=== PATIENT | female | born 1965 | race Caucasian/White ===

== ENCOUNTER 2021-09-25 20:48 | Emergency (ER) | payer MEDICAID, OTHER ==
[~2021-09-25] VITALS: Ht 177.8 cm; Wt 63.5 kg
[2021-09-25 22:00] VITALS: BP 188/94
[2021-09-25 22:59] LABS: Calcium 9.2 mg/dL (8.5-10.1); Potassium 3.3 mmol/L (3.5-5.1)
[2021-09-25 23:02] LABS: Albumin 3.6 g/dL (3.4-5.0); BUN/Creatinine Ratio 19.8
[2021-09-25 23:04] LABS: Bilirubin, Total 2.2 mg/dL (0.2-1.0); Total Protein 6.3 g/dL (6.4-8.2)
[2021-09-25] MEDS ORDERED: ACETAMINOPHEN 325 MG TAB PO ONE ×2 (23:15)
== END 2021-09-26 00:25 | disposition home or self-care (01) ==
LOC: EDBD 20:48 → ER 20:50
DX: S06.0X0A Concussion without loss of consciousness, initial encounter (principal); R42 Dizziness and giddiness; E11.9 Type 2 diabetes mellitus without complications; W01.0XXA Fall on same level from slipping, tripping and stumbling without subsequent striking against object, initial encounter; Y93.89 Activity, other specified; Y92.89 Other specified places as the place of occurrence of the external cause; Y99.8 Other external cause status
CPT/HCPCS: 36415; 36600; 70450; 80053; 82805; 93005

== ENCOUNTER 2021-10-02 10:35 | Inpatient (IN) | payer MEDICAID ==
[~2021-10-02] VITALS: Ht 177.8 cm; Wt 61.2 kg
[2021-10-02] MEDS ORDERED: SODIUM CHLORIDE 0.9% 1,000 ML IV ONE (11:15)
[2021-10-02 11:32] LABS: Basophils # (auto) 0.2 10 ^3/uL (0-0.2); Basophils % (auto) 3.5 % (0.0-2.0); Eosinophils # (auto) 0.1 10 ^3/uL (0-0.8); Eosinophils % (auto) 2.2 % (0.0-7.0); Hematocrit 42.3 % (36.0-46.0); Hemoglobin 14.7 g/dL (12.2-16.2); Lymphocytes # (auto) 1.8 10 ^3/uL (0.4-5.4); Lymphocytes % (auto) 35.7 % (10.0-50.0); Mean Corpuscular Hemoglobin 28.9 pg (28.0-32.0); Mean Corpuscular Hgb Conc. 34.7 g/dL (32.0-36.0); Mean Corpuscular Volume 83.3 fL (80.0-100.0); Monocytes # (auto) 0.4 10 ^3/uL (0-1.3); Monocytes % (auto) 7.9 % (0.0-12.0); Neutrophils # (auto) 2.6 10 ^3/uL (1.6-8.6); Neutrophils % (auto) 50.7 % (37.0-80.0); Nucleated Red Blood Cells % 0.4 %; Red Blood Cells 5.08 10^6/uL (4.0-5.20); Red Cell Distribution Width 14.1 % (11.8-14.3); White Blood Cell 5.1 10^3/uL (4.4-10.8)
[2021-10-02 12:08] LABS: Albumin 3.6 g/dL (3.4-5.0); Calcium 9.5 mg/dL (8.5-10.1); Potassium 3.3 mmol/L (3.5-5.1)
[2021-10-02 12:18] LABS: BUN/Creatinine Ratio 15.6; Magnesium 1.6 mg/dL (1.6-2.6); Total Protein 6.6 g/dL (6.4-8.2)
[2021-10-02] MEDS ORDERED: MORPHINE SULFATE INJECTION 2 MG/ML SYRG IV ONE (12:45)
[2021-10-02] MEDS ORDERED: ONDANSETRON HCL 4 MG/2 ML VIAL IV ONE (12:45)
[2021-10-02 13:38] LABS: Urine Bacteria FEW /hpf (None Seen); Urine Blood Negative /uL (Negative); Urine Hyaline Cast FEW /lpf (0 - 2); Urine Mucus FEW (None Seen); Urine Specific Gravity 1.032 (1.001-1.035); Urine WBC 5 /hpf (0 - 5)
[2021-10-02 14:06] LABS: INR 1.06 (0.9-1.15); Partial Thromboplastin Time 24.4 sec (23.6-33.0)
[2021-10-02] MEDS ORDERED: ONDANSETRON HCL 4 MG/2 ML VIAL IV PRN (16:45)
[2021-10-02] MEDS ORDERED: DEXTROSE (50%) 50ML SYRG IV PRN (17:30)
[2021-10-02] MEDS: SODIUM CHLORIDE 0.9% 1,000 ML IV SCH (17:38)
[2021-10-02] MEDS: MORPHINE SULFATE 4 MG/ML SYR/VIAL IV PRN ×2 (17:54→22:42)
[2021-10-02] MEDS ORDERED: POTASSIUM CHL 20 Meq TABLET PO ONE (19:45)
[2021-10-02 20:20] LABS: Cholesterol 225 mg/dL (< 200); HDL Cholesterol 41 mg/dL (40-59); LDL Cholesterol 142 mg/dL (< 100); Triglycerides 274 mg/dL (< 150)
[2021-10-02 22:00] VITALS: BP 136/87
[2021-10-02] MEDS: ACCU-CHEK COMFORT CURVE STRIP VI SCH (22:42)
[2021-10-02] MEDS: InsuLIN REG 1unit/0.01ml Soln (100units/ml) SC SCH (22:45)
[2021-10-03] MEDS ORDERED: INSLANTI SC (00:57)
[2021-10-03] MEDS ORDERED: METF-370 PO (00:57)
[2021-10-03] MEDS: MORPHINE SULFATE 4 MG/ML SYR/VIAL IV PRN ×5 (03:06→23:57)
[2021-10-03 05:00] VITALS: BP 143/82
[2021-10-03 05:24] LABS: Basophils # (auto) 0.1 10 ^3/uL (0-0.2); Basophils % (auto) 1.7 % (0.0-2.0); Eosinophils # (auto) 0.1 10 ^3/uL (0-0.8); Eosinophils % (auto) 3.7 % (0.0-7.0); Hematocrit 37.4 % (36.0-46.0); Hemoglobin 13.3 g/dL (12.2-16.2); Lymphocytes # (auto) 1.7 10 ^3/uL (0.4-5.4); Lymphocytes % (auto) 46.7 % (10.0-50.0); Mean Corpuscular Hemoglobin 29.4 pg (28.0-32.0); Mean Corpuscular Hgb Conc. 35.5 g/dL (32.0-36.0); Mean Corpuscular Volume 82.9 fL (80.0-100.0); Monocytes # (auto) 0.4 10 ^3/uL (0-1.3); Monocytes % (auto) 10.5 % (0.0-12.0); Neutrophils # (auto) 1.4 10 ^3/uL (1.6-8.6); Neutrophils % (auto) 37.4 % (37.0-80.0); Nucleated Red Blood Cells % 0.1 %; Red Blood Cells 4.51 10^6/uL (4.0-5.20); White Blood Cell 3.7 10^3/uL (4.4-10.8)
[2021-10-03 05:47] LABS: Potassium 3.6 mmol/L (3.5-5.1)
[2021-10-03 05:55] LABS: Albumin 3.2 g/dL (3.4-5.0); BUN/Creatinine Ratio 18.8; Calcium 8.8 mg/dL (8.5-10.1)
[2021-10-03 05:59] LABS: Bilirubin, Total 2.4 mg/dL (0.2-1.0)
[2021-10-03] MEDS: SODIUM CHLORIDE 0.9% 1,000 ML IV SCH ×3 (06:34→19:50)
[2021-10-03] MEDS: ACCU-CHEK COMFORT CURVE STRIP VI SCH ×4 (06:35→22:28)
[2021-10-03] MEDS: InsuLIN REG 1unit/0.01ml Soln (100units/ml) SC SCH ×4 (06:36→22:28)
[2021-10-03 08:00] VITALS: BP 116/71
[2021-10-03] MEDS: ENOXAPARIN SOD 40 MG/0.4 ML SYRINGE SC SCH (09:09)
[2021-10-03 12:00] VITALS: BP 142/82
[2021-10-03 12:59] LABS: Alcohol, Urine < 3.0 mg/dL (0-10); Amphetamine Screen, Urine NEGATIVE (NEGATIVE); Barbiturate Scree,Urine NEGATIVE (NEGATIVE); Benzodiazephine Screen, Urine NEGATIVE (NEGATIVE); Cannabinoid Screen, Urine NEGATIVE (NEGATIVE); Cocaine Screen, Urine NEGATIVE (NEGATIVE); Opiate Scree,Urine NEGATIVE (NEGATIVE); Phencyclidine Screen, Urine NEGATIVE (NEGATIVE)
[2021-10-03 16:00] VITALS: BP 143/86
[2021-10-03 22:00] VITALS: BP 141/76
[2021-10-04] MEDS: SODIUM CHLORIDE 0.9% 1,000 ML IV SCH ×3 (03:29→21:09)
[2021-10-04 05:00] VITALS: BP 164/95
[2021-10-04] MEDS: MORPHINE SULFATE 4 MG/ML SYR/VIAL IV PRN ×4 (05:13→21:08)
[2021-10-04] MEDS: ACCU-CHEK COMFORT CURVE STRIP VI SCH ×4 (06:50→21:14)
[2021-10-04] MEDS: InsuLIN REG 1unit/0.01ml Soln (100units/ml) SC SCH ×4 (06:51→21:07)
[2021-10-04] MEDS: hydrALAZINE HCL 20 MG/ML VL IV PRN (07:06)
[2021-10-04 08:00] VITALS: BP 129/68
[2021-10-04 09:00] VITALS: BP 129/68
[2021-10-04] MEDS: ENOXAPARIN SOD 40 MG/0.4 ML SYRINGE SC SCH (09:41)
[2021-10-04 13:00] VITALS: BP 153/83
[2021-10-04 17:00] VITALS: BP 144/80
[2021-10-04 22:00] VITALS: BP 142/87
[2021-10-05] MEDS: MORPHINE SULFATE 4 MG/ML SYR/VIAL IV PRN ×2 (02:26→09:22)
[2021-10-05 05:09] VITALS: BP 141/88
[2021-10-05] MEDS: SODIUM CHLORIDE 0.9% 1,000 ML IV SCH ×2 (05:43→08:49)
[2021-10-05] MEDS: InsuLIN REG 1unit/0.01ml Soln (100units/ml) SC SCH ×2 (06:50→11:46)
[2021-10-05] MEDS: ACCU-CHEK COMFORT CURVE STRIP VI SCH ×2 (06:51→11:45)
[2021-10-05] MEDS ORDERED: LORazepam 2MG/ML-1ML VIAL IV PRN (08:30)
[2021-10-05 09:01] VITALS: BP 154/86
[2021-10-05] MEDS: ENOXAPARIN SOD 40 MG/0.4 ML SYRINGE SC SCH (09:22)
[2021-10-05 11:40] VITALS: BP 154/86
[2021-10-05] MEDS: hydrALAZINE HCL 20 MG/ML VL IV PRN (12:15)
[2021-10-05 13:00] VITALS: BP 158/91
== END 2021-10-05 14:17 | disposition home or self-care (01) | DRG 204 ==
LOC: ER 10:35 → TELE 16:35 → TELE-CENTR 21:59
PROVIDERS: ADMIT Registered Nurse; ATTEND Family Medicine
DX: R55 Syncope and collapse (principal); E11.22 Type 2 diabetes mellitus with diabetic chronic kidney disease; I95.9 Hypotension, unspecified; C44.90 Unspecified malignant neoplasm of skin, unspecified; E04.1 Nontoxic single thyroid nodule; E86.0 Dehydration; E87.6 Hypokalemia; F17.200 Nicotine dependence, unspecified, uncomplicated; I12.9 Hypertensive chronic kidney disease with stage 1 through stage 4 chronic kidney disease, or unspecified chronic kidney disease; R80.9 Proteinuria, unspecified; R82.4 Acetonuria; K57.90 Diverticulosis of intestine, part unspecified, without perforation or abscess without bleeding; Z20.822 Contact with and (suspected) exposure to COVID-19; N18.2 Chronic kidney disease, stage 2 (mild); Z80.9 Family history of malignant neoplasm, unspecified; Z82.3 Family history of stroke; Z82.49 Family history of ischemic heart disease and other diseases of the circulatory system; Z82.5 Family history of asthma and other chronic lower respiratory diseases; Z83.3 Family history of diabetes mellitus; Z85.828 Personal history of other malignant neoplasm of skin; Z88.0 Allergy status to penicillin; Z88.8 Allergy status to other drugs, medicaments and biological substances; Z91.040 Latex allergy status; Z91.81 History of falling; Z79.4 Long term (current) use of insulin
CPT/HCPCS: 36415; 70551; 71045; 71260; 74177; 76536; 80053; 80061; 80307; 81001; 82962; 83036; 83605; 83735; 84443; 84484; 85025; 85610; 85730; 87040; 87086; 93005; 93306; 93886; 96361; 96374; 96375; G0378; J1815; J2405

== ENCOUNTER 2021-10-07 07:58 | Inpatient (IN) | payer MEDICAID ==
[~2021-10-07] VITALS: Ht 162.6 cm; Wt 63.7 kg
[~2021-10-07 07:58] MED LIST: INSLANTI SC; METF-370 PO
[2021-10-07 09:27] LABS: Basophils # (auto) 0 10 ^3/uL (0-0.2); Eosinophils # (auto) 0.1 10 ^3/uL (0-0.8); Eosinophils % (auto) 2.1 % (0.0-7.0); Hematocrit 36.9 % (36.0-46.0); Hemoglobin 12.9 g/dL (12.2-16.2); Lymphocytes # (auto) 1.9 10 ^3/uL (0.4-5.4); Lymphocytes % (auto) 44.6 % (10.0-50.0); Mean Corpuscular Hemoglobin 29.1 pg (28.0-32.0); Mean Corpuscular Hgb Conc. 35.1 g/dL (32.0-36.0); Monocytes # (auto) 0.3 10 ^3/uL (0-1.3); Monocytes % (auto) 8.2 % (0.0-12.0); Neutrophils # (auto) 1.8 10 ^3/uL (1.6-8.6); Neutrophils % (auto) 44.1 % (37.0-80.0); Nucleated Red Blood Cells % 0.3 %; Red Blood Cells 4.45 10^6/uL (4.0-5.20); White Blood Cell 4.2 10^3/uL (4.4-10.8)
[2021-10-07 09:28] LABS: Urine Bacteria NONE SEEN /hpf (None Seen); Urine Blood Negative /uL (Negative); Urine Specific Gravity 1.017 (1.001-1.035); Urine WBC 1 /hpf (0 - 5)
[2021-10-07 09:42] LABS: Albumin 3.6 g/dL (3.4-5.0); Calcium 9.2 mg/dL (8.5-10.1)
[2021-10-07 09:46] LABS: BUN/Creatinine Ratio 13.8; Total Protein 6.3 g/dL (6.4-8.2)
[2021-10-07] MEDS ORDERED: POTASSIUM EFFERVESENT TAB 25 MEQ PO ONE (10:15)
[2021-10-07] MEDS ORDERED: LABETALOL HCL 5 MG/ML 4ML SYRINGE IV ONE (10:15)
[2021-10-07] MEDS ORDERED: ONDANSETRON HCL 4 MG/2 ML VIAL IV ONE ×2 (11:00→14:45)
[2021-10-07] MEDS ORDERED: MORPHINE SULFATE INJ 2 MG/ml SYRG IV ONE ×2 (11:00→14:45)
[2021-10-07] MEDS ORDERED: HYDROmorphone HCL 2 MG/ML VL/or syr IV PRN (18:00)
[2021-10-07] MEDS ORDERED: NITROGLYCERIN 0.4 MG SL TAB SL PRN ×2 (18:00)
[2021-10-07] MEDS ORDERED: DEXTROSE (50%) 50ML SYRG IV PRN (18:00)
[2021-10-07] MEDS ORDERED: MORPHINE SULFATE INJ 2 MG/ml SYRG IV PRN ×2 (18:00)
[2021-10-07] MEDS ORDERED: PANTOPRAZOLE 40 MG TAB PO ONE (18:15)
[2021-10-07] MEDS: SOD CHL 0.45% 1,000 ML IV SCH (18:24)
[2021-10-07] MEDS ORDERED: hydrALAZINE HCL 20 MG/ML VL IV PRN (18:30)
[2021-10-07] MEDS ORDERED: amLODIPine BESYLATE 5 MG TAB PO ONE (18:30)
[2021-10-07 19:40] VITALS: BP 157/80
[2021-10-07] MEDS: SODIUM CHLOR 0.9% PF (SALINE LOCK) 10ML VIAL/SYR IV SCH (21:09)
[2021-10-07] MEDS: ACCU-CHEK COMFORT CURVE STRIP VI SCH (21:09)
[2021-10-07] MEDS: MORPHINE SULFATE INJ 2 MG/ml SYRG IV PRN (21:11)
[2021-10-07] MEDS: InsuLIN REG 1unit/0.01ml Soln (100units/ml) SC SCH (21:43)
[2021-10-07 22:00] VITALS: BP 157/80
[2021-10-07] MEDS ORDERED: CYCLOBENZAPRINE HCL 10 MG TAB PO ONE (22:00)
[2021-10-07] MEDS ORDERED: QUEtiapine FUMARATE 25 MG TAB PO ONE (22:00)
[2021-10-08] VITALS (7 sets, daily range): BP systolic 102–130; BP diastolic 66–82
[2021-10-08] MEDS: SODIUM CHLOR 0.9% PF (SALINE LOCK) 10ML VIAL/SYR IV SCH ×3 (05:32→21:43)
[2021-10-08] MEDS: ACCU-CHEK COMFORT CURVE STRIP VI SCH ×4 (05:33→21:43)
[2021-10-08] MEDS: MORPHINE SULFATE INJ 2 MG/ml SYRG IV PRN ×5 (05:34→23:00)
[2021-10-08] MEDS: InsuLIN REG 1unit/0.01ml Soln (100units/ml) SC SCH ×4 (05:53→21:49)
[2021-10-08 06:03] LABS: Basophils # (auto) 0.1 10 ^3/uL (0-0.2); Basophils % (auto) 1.5 % (0.0-2.0); Eosinophils # (auto) 0.1 10 ^3/uL (0-0.8); Eosinophils % (auto) 3.2 % (0.0-7.0); Hematocrit 36.9 % (36.0-46.0); Hemoglobin 13.2 g/dL (12.2-16.2); Lymphocytes # (auto) 1.8 10 ^3/uL (0.4-5.4); Lymphocytes % (auto) 49.5 % (10.0-50.0); Mean Corpuscular Hemoglobin 30.1 pg (28.0-32.0); Mean Corpuscular Hgb Conc. 35.9 g/dL (32.0-36.0); Mean Corpuscular Volume 83.8 fL (80.0-100.0); Monocytes # (auto) 0.2 10 ^3/uL (0-1.3); Monocytes % (auto) 6.7 % (0.0-12.0); Neutrophils # (auto) 1.4 10 ^3/uL (1.6-8.6); Neutrophils % (auto) 39.1 % (37.0-80.0); Nucleated Red Blood Cells % 0.3 %; Red Cell Distribution Width 14.4 % (11.8-14.3); White Blood Cell 3.7 10^3/uL (4.4-10.8)
[2021-10-08 06:18] LABS: Albumin 3.3 g/dL (3.4-5.0); Calcium 9.2 mg/dL (8.5-10.1); Potassium 3.7 mmol/L (3.5-5.1)
[2021-10-08 06:33] LABS: BUN/Creatinine Ratio 15.4; Bilirubin, Total 2.3 mg/dL (0.2-1.0); Total Protein 6.2 g/dL (6.4-8.2)
[2021-10-08] MEDS: SOD CHL 0.45% 1,000 ML IV SCH (21:42)
[2021-10-08] MEDS ORDERED: QUEtiapine FUMARATE 25 MG TAB PO ONE (22:00)
[2021-10-09] VITALS (7 sets, daily range): BP systolic 114–168; BP diastolic 73–90
[2021-10-09] MEDS: KETOROLAC TROMETH 30 MG/ML 1ML VIAL IV PRN (00:24)
[2021-10-09] MEDS: MORPHINE SULFATE INJ 2 MG/ml SYRG IV PRN ×5 (03:15→21:22)
[2021-10-09] MEDS: SOD CHL 0.45% 1,000 ML IV SCH ×2 (03:20→20:00)
[2021-10-09 05:34] LABS: Basophils # (auto) 0 10 ^3/uL (0-0.2); Basophils % (auto) 0.9 % (0.0-2.0); Eosinophils # (auto) 0.1 10 ^3/uL (0-0.8); Eosinophils % (auto) 2.3 % (0.0-7.0); Hematocrit 34.3 % (36.0-46.0); Hemoglobin 12.4 g/dL (12.2-16.2); Lymphocytes # (auto) 1.6 10 ^3/uL (0.4-5.4); Lymphocytes % (auto) 28.3 % (10.0-50.0); Mean Corpuscular Hemoglobin 30.1 pg (28.0-32.0); Mean Corpuscular Volume 83.6 fL (80.0-100.0); Monocytes # (auto) 0.4 10 ^3/uL (0-1.3); Monocytes % (auto) 6.6 % (0.0-12.0); Neutrophils # (auto) 3.5 10 ^3/uL (1.6-8.6); Neutrophils % (auto) 61.9 % (37.0-80.0); Nucleated Red Blood Cells % 0.1 %; Red Cell Distribution Width 14.1 % (11.8-14.3); White Blood Cell 5.7 10^3/uL (4.4-10.8)
[2021-10-09 06:00] LABS: Albumin 2.9 g/dL (3.4-5.0); Potassium 3.9 mmol/L (3.5-5.1)
[2021-10-09 06:02] LABS: BUN/Creatinine Ratio 24.7
[2021-10-09 06:04] LABS: Total Protein 5.7 g/dL (6.4-8.2)
[2021-10-09] MEDS: SODIUM CHLOR 0.9% PF (SALINE LOCK) 10ML VIAL/SYR IV SCH ×3 (06:15→22:12)
[2021-10-09] MEDS: ACCU-CHEK COMFORT CURVE STRIP VI SCH ×4 (06:16→22:13)
[2021-10-09] MEDS: InsuLIN REG 1unit/0.01ml Soln (100units/ml) SC SCH ×4 (06:20→22:00)
[2021-10-09] MEDS: PANTOPRAZOLE 40 MG TAB PO SCH (09:08)
[2021-10-09] MEDS ORDERED: METOPROLOL TARTRATE 25 MG TAB PO ONE (12:15)
[2021-10-09 12:44] LABS: % Iron Saturation 10.9 % (15-50)
[2021-10-09] MEDS ORDERED: LORazepam 2MG/ML-1ML VIAL IV PRN (20:45)
[2021-10-09] MEDS: MUPIROCIN 2% OINT 15gm or 22gm EACHNOSTRI SCH (22:00)
[2021-10-09] MEDS: INSULIN LANTUS (GLARGINE) 1 /0.01ml (100units/ml) SC SCH (22:00)
[2021-10-09] MEDS: ATORVASTATIN 20 MG TAB PO SCH (22:12)
[2021-10-09] MEDS: METOPROLOL TARTRATE 25 MG TAB PO SCH (22:13)
[2021-10-10] VITALS (7 sets, daily range): BP systolic 127–164; BP diastolic 71–91
[2021-10-10] MEDS: SOD CHL 0.45% 1,000 ML IV SCH (00:41)
[2021-10-10] MEDS: MORPHINE SULFATE INJ 2 MG/ml SYRG IV PRN ×5 (01:11→20:54)
[2021-10-10] MEDS: SODIUM CHLOR 0.9% PF (SALINE LOCK) 10ML VIAL/SYR IV SCH (05:12)
[2021-10-10] MEDS: ACCU-CHEK COMFORT CURVE STRIP VI SCH ×4 (06:31→22:21)
[2021-10-10] MEDS: InsuLIN REG 1unit/0.01ml Soln (100units/ml) SC SCH ×4 (06:32→22:35)
[2021-10-10 06:59] LABS: Potassium 3.8 mmol/L (3.5-5.1)
[2021-10-10 07:03] LABS: BUN/Creatinine Ratio 30.2; Calcium 8.9 mg/dL (8.5-10.1); Magnesium 1.9 mg/dL (1.6-2.6)
[2021-10-10] MEDS ORDERED: MAGNESIUM OXIDE 400 MG TAB PO ONE (08:45)
[2021-10-10] MEDS: MUPIROCIN 2% OINT 15gm or 22gm EACHNOSTRI SCH ×2 (09:35→22:20)
[2021-10-10] MEDS: METOPROLOL TARTRATE 25 MG TAB PO SCH ×2 (09:35→22:20)
[2021-10-10] MEDS: PANTOPRAZOLE 40 MG TAB PO SCH (09:36)
[2021-10-10] MEDS: KETOROLAC TROMETH 30 MG/ML 1ML VIAL IV PRN (09:36)
[2021-10-10] MEDS ORDERED: POTASSIUM EFFERVESENT TAB 25 MEQ PO ONE (13:30)
[2021-10-10] MEDS ORDERED: MAGNESIUM SULFATE 1GM/100ML 100 ML IV ONE (13:30)
[2021-10-10] MEDS: ERGOCALCIFEROL 50,000 UNIT(1.25MG) CAP PO SCH (17:11)
[2021-10-10] MEDS: ATORVASTATIN 20 MG TAB PO SCH (22:20)
[2021-10-10] MEDS: INSULIN LANTUS (GLARGINE) 1 /0.01ml (100units/ml) SC SCH (22:29)
[2021-10-10] MEDS: HYDROcodone-ACET 5/325MG TAB PO PRN (22:35)
[2021-10-11] VITALS (7 sets, daily range): BP systolic 102–154; BP diastolic 60–83
[2021-10-11] MEDS: MORPHINE SULFATE INJ 2 MG/ml SYRG IV PRN ×6 (01:03→22:42)
[2021-10-11] MEDS: ACCU-CHEK COMFORT CURVE STRIP VI SCH ×4 (06:32→21:57)
[2021-10-11] MEDS: InsuLIN REG 1unit/0.01ml Soln (100units/ml) SC SCH ×4 (06:38→21:57)
[2021-10-11 08:49] LABS: Magnesium 1.8 mg/dL (1.6-2.6); Potassium 4.2 mmol/L (3.5-5.1)
[2021-10-11] MEDS: MUPIROCIN 2% OINT 15gm or 22gm EACHNOSTRI SCH ×2 (10:11→21:56)
[2021-10-11] MEDS: METOPROLOL TARTRATE 25 MG TAB PO SCH ×2 (10:12→21:56)
[2021-10-11] MEDS ORDERED: SODIUM CHLORIDE 0.9% 1,000 ML IV SCH (12:30)
[2021-10-11] MEDS ORDERED: FLUDROCORTISONE ACETATE 0.1 MG TAB PO ONE (14:15)
[2021-10-11] MEDS ORDERED: MAGNESIUM SULFATE 1GM/100ML 100 ML IV ONE (14:15)
[2021-10-11] MEDS: SODIUM CHLORIDE 0.9% 1,000 ML IV SCH (14:23)
[2021-10-11] MEDS: ATORVASTATIN 20 MG TAB PO SCH (21:56)
[2021-10-11] MEDS: INSULIN LANTUS (GLARGINE) 1 /0.01ml (100units/ml) SC SCH (22:00)
[2021-10-12] VITALS (7 sets, daily range): BP systolic 126–159; BP diastolic 79–85
[2021-10-12] MEDS: MORPHINE SULFATE INJ 2 MG/ml SYRG IV PRN ×2 (02:55→09:44)
[2021-10-12] MEDS: ACCU-CHEK COMFORT CURVE STRIP VI SCH ×4 (06:34→22:14)
[2021-10-12] MEDS: InsuLIN REG 1unit/0.01ml Soln (100units/ml) SC SCH ×4 (06:39→22:25)
[2021-10-12] MEDS: FLUDROCORTISONE ACETATE 0.1 MG TAB PO SCH (09:42)
[2021-10-12] MEDS: METOPROLOL TARTRATE 25 MG TAB PO SCH (09:44)
[2021-10-12] MEDS: MUPIROCIN 2% OINT 15gm or 22gm EACHNOSTRI SCH ×2 (09:45→22:13)
[2021-10-12] MEDS: SODIUM CHLORIDE 0.9% 1,000 ML IV SCH (09:46)
[2021-10-12] MEDS: HYDROcodone-ACET 5/325MG TAB PO PRN ×3 (14:00→22:16)
[2021-10-12] MEDS: ATORVASTATIN 20 MG TAB PO SCH (22:14)
[2021-10-12] MEDS: traZODone HCL 50 MG TAB PO SCH (22:14)
[2021-10-12] MEDS: INSULIN LANTUS (GLARGINE) 1 /0.01ml (100units/ml) SC SCH (22:24)
[2021-10-13] MEDS: HYDROcodone-ACET 5/325MG TAB PO PRN ×4 (04:18→22:47)
[2021-10-13 05:00] VITALS: BP 145/78
[2021-10-13] MEDS: ACCU-CHEK COMFORT CURVE STRIP VI SCH ×4 (06:18→22:57)
[2021-10-13] MEDS: InsuLIN REG 1unit/0.01ml Soln (100units/ml) SC SCH ×4 (06:29→22:58)
[2021-10-13 09:00] VITALS: BP_SYST 131; BP_SYST 75; BP_SYST 86; BP_DIAS 51; BP_DIAS 53; BP_DIAS 79
[2021-10-13] MEDS: MUPIROCIN 2% OINT 15gm or 22gm EACHNOSTRI SCH ×2 (09:32→22:48)
[2021-10-13] MEDS: FLUDROCORTISONE ACETATE 0.1 MG TAB PO SCH (09:32)
[2021-10-13 12:00] VITALS: BP 124/71
[2021-10-13] MEDS: MIDODRINE HCL 10 MG TAB PO SCH ×2 (13:05→18:10)
[2021-10-13 16:00] VITALS: BP 151/94
[2021-10-13 22:25] VITALS: BP 165/76
[2021-10-13] MEDS: ATORVASTATIN 20 MG TAB PO SCH (22:47)
[2021-10-13] MEDS: traZODone HCL 50 MG TAB PO SCH (22:48)
[2021-10-13] MEDS: INSULIN LANTUS (GLARGINE) 1 /0.01ml (100units/ml) SC SCH (22:58)
[2021-10-14] MEDS: HYDROcodone-ACET 5/325MG TAB PO PRN ×4 (03:46→20:28)
[2021-10-14 05:09] VITALS: BP_SYST 125; BP_SYST 76; BP_SYST 93; BP_DIAS 50; BP_DIAS 60; BP_DIAS 73
[2021-10-14] MEDS: MIDODRINE HCL 10 MG TAB PO SCH ×3 (07:10→17:35)
[2021-10-14] MEDS: ACCU-CHEK COMFORT CURVE STRIP VI SCH ×4 (07:11→21:07)
[2021-10-14] MEDS: InsuLIN REG 1unit/0.01ml Soln (100units/ml) SC SCH ×4 (07:11→21:25)
[2021-10-14 07:50] VITALS: BP 146/79
[2021-10-14 09:00] VITALS: BP 146/79
[2021-10-14] MEDS: MUPIROCIN 2% OINT 15gm or 22gm EACHNOSTRI SCH (09:56)
[2021-10-14 13:00] VITALS: BP 112/76
[2021-10-14 17:00] VITALS: BP 147/80
[2021-10-14] MEDS: ATORVASTATIN 20 MG TAB PO SCH (21:07)
[2021-10-14] MEDS: traZODone HCL 50 MG TAB PO SCH (21:07)
[2021-10-14] MEDS: INSULIN LANTUS (GLARGINE) 1 /0.01ml (100units/ml) SC SCH (21:25)
[2021-10-14 22:00] VITALS: BP 148/84
[2021-10-14] MEDS: ONDANSETRON HCL 4 MG/2 ML VIAL IV PRN (23:15)
[2021-10-14] MEDS: KETOROLAC TROMETH 30 MG/ML 1ML VIAL IV PRN (23:16)
[2021-10-15] MEDS: KETOROLAC TROMETH 30 MG/ML 1ML VIAL IV PRN ×4 (03:35→17:06)
[2021-10-15] MEDS: ONDANSETRON HCL 4 MG/2 ML VIAL IV PRN ×3 (03:35→12:02)
[2021-10-15 05:00] VITALS: BP 126/71
[2021-10-15] MEDS: MIDODRINE HCL 10 MG TAB PO SCH ×3 (05:59→17:06)
[2021-10-15] MEDS: LEVOTHYROXINE SODIUM 25 MCG TAB PO SCH (05:59)
[2021-10-15] MEDS: ACCU-CHEK COMFORT CURVE STRIP VI SCH ×4 (05:59→22:08)
[2021-10-15] MEDS: InsuLIN REG 1unit/0.01ml Soln (100units/ml) SC SCH ×4 (06:09→22:07)
[2021-10-15] MEDS: DOCUSATE SOD 100 MG CAP PO PRN (08:15)
[2021-10-15 09:00] VITALS: BP 119/72
[2021-10-15 18:08] VITALS: BP 148/83
[2021-10-15 22:00] VITALS: BP_SYST 166; BP_SYST 7; BP_DIAS 89
[2021-10-15] MEDS: INSULIN LANTUS (GLARGINE) 1 /0.01ml (100units/ml) SC SCH (22:08)
[2021-10-15] MEDS: traZODone HCL 50 MG TAB PO SCH (22:11)
[2021-10-15] MEDS: ATORVASTATIN 20 MG TAB PO SCH (22:11)
[2021-10-16] VITALS (7 sets, daily range): BP systolic 76–160; BP diastolic 47–94
[2021-10-16] MEDS: HYDROcodone-ACET 5/325MG TAB PO PRN ×5 (03:05→23:04)
[2021-10-16] MEDS: MIDODRINE HCL 10 MG TAB PO SCH ×3 (06:00→17:38)
[2021-10-16] MEDS: LEVOTHYROXINE SODIUM 25 MCG TAB PO SCH (06:39)
[2021-10-16] MEDS: InsuLIN REG 1unit/0.01ml Soln (100units/ml) SC SCH ×4 (06:43→22:54)
[2021-10-16] MEDS: ACCU-CHEK COMFORT CURVE STRIP VI SCH ×4 (06:44→22:00)
[2021-10-16] MEDS ORDERED: methylPREDNISolone SOD SUCC 125 MG/2 ML VL IV ONE (11:15)
[2021-10-16] MEDS ORDERED: FLUDROCORTISONE ACETATE 0.1 MG TAB PO ONE (12:30)
[2021-10-16] MEDS: DOCUSATE SOD 100 MG CAP PO PRN (13:14)
[2021-10-16] MEDS: INSULIN LANTUS (GLARGINE) 1 /0.01ml (100units/ml) SC SCH (22:55)
[2021-10-16] MEDS: ATORVASTATIN 20 MG TAB PO SCH (23:03)
[2021-10-16] MEDS: traZODone HCL 50 MG TAB PO SCH (23:04)
[2021-10-17] VITALS (7 sets, daily range): BP systolic 80–156; BP diastolic 43–92
[2021-10-17] MEDS: HYDROcodone-ACET 5/325MG TAB PO PRN ×4 (03:26→20:13)
[2021-10-17 06:15] LABS: Albumin 2.8 g/dL (3.4-5.0); Calcium 9.5 mg/dL (8.5-10.1); Potassium 3.9 mmol/L (3.5-5.1)
[2021-10-17] MEDS: MIDODRINE HCL 10 MG TAB PO SCH ×3 (06:15→17:49)
[2021-10-17] MEDS: ACCU-CHEK COMFORT CURVE STRIP VI SCH ×4 (06:16→21:53)
[2021-10-17 06:19] LABS: Bilirubin, Total 0.9 mg/dL (0.2-1.0); Total Protein 6.7 g/dL (6.4-8.2)
[2021-10-17] MEDS: InsuLIN REG 1unit/0.01ml Soln (100units/ml) SC SCH ×4 (06:26→21:55)
[2021-10-17] MEDS: LEVOTHYROXINE SODIUM 25 MCG TAB PO SCH (06:27)
[2021-10-17] MEDS: FLUDROCORTISONE ACETATE 0.1 MG TAB PO SCH (09:33)
[2021-10-17] MEDS ORDERED: predniSONE 20 MG TAB PO SCH (10:00)
[2021-10-17] MEDS: DOCUSATE SOD 100 MG CAP PO PRN (10:27)
[2021-10-17] MEDS: ERGOCALCIFEROL 50,000 UNIT(1.25MG) CAP PO SCH (13:08)
[2021-10-17] MEDS ORDERED: GABAPENTIN 300 MG CAP PO ONE (14:00)
[2021-10-17] MEDS: ATORVASTATIN 20 MG TAB PO SCH (21:52)
[2021-10-17] MEDS: traZODone HCL 50 MG TAB PO SCH (21:52)
[2021-10-17] MEDS: GABAPENTIN 300 MG CAP PO SCH (21:53)
[2021-10-17] MEDS: INSULIN LANTUS (GLARGINE) 1 /0.01ml (100units/ml) SC SCH (21:54)
[2021-10-18] VITALS (7 sets, daily range): BP systolic 70–133; BP diastolic 43–76
[2021-10-18] MEDS: HYDROcodone-ACET 5/325MG TAB PO PRN ×5 (01:38→22:03)
[2021-10-18] MEDS: ACCU-CHEK COMFORT CURVE STRIP VI SCH ×4 (06:17→22:17)
[2021-10-18] MEDS: InsuLIN REG 1unit/0.01ml Soln (100units/ml) SC SCH ×4 (06:17→22:15)
[2021-10-18] MEDS: LEVOTHYROXINE SODIUM 25 MCG TAB PO SCH (06:17)
[2021-10-18] MEDS: MIDODRINE HCL 10 MG TAB PO SCH ×3 (06:17→17:15)
[2021-10-18] MEDS: FLUDROCORTISONE ACETATE 0.1 MG TAB PO SCH (10:04)
[2021-10-18] MEDS: GABAPENTIN 300 MG CAP PO SCH ×2 (10:05→21:50)
[2021-10-18] MEDS ORDERED: ENALAPRILAT 1.25 MG/ML-1ML VIAL IV PRN (10:45)
[2021-10-18] MEDS: ATORVASTATIN 20 MG TAB PO SCH (21:50)
[2021-10-18] MEDS: traZODone HCL 50 MG TAB PO SCH (21:50)
[2021-10-18] MEDS: INSULIN LANTUS (GLARGINE) 1 /0.01ml (100units/ml) SC SCH (22:15)
[2021-10-19] MEDS: HYDROcodone-ACET 5/325MG TAB PO PRN ×3 (04:31→17:16)
[2021-10-19] MEDS: MIDODRINE HCL 10 MG TAB PO SCH ×3 (06:20→17:15)
[2021-10-19] MEDS: LEVOTHYROXINE SODIUM 25 MCG TAB PO SCH (06:20)
[2021-10-19] MEDS: ACCU-CHEK COMFORT CURVE STRIP VI SCH ×4 (06:34→21:41)
[2021-10-19] MEDS: InsuLIN REG 1unit/0.01ml Soln (100units/ml) SC SCH ×4 (06:35→21:48)
[2021-10-19] MEDS: GABAPENTIN 300 MG CAP PO SCH ×2 (08:56→21:40)
[2021-10-19] MEDS: FLUDROCORTISONE ACETATE 0.1 MG TAB PO SCH (08:56)
[2021-10-19 09:00] VITALS: BP 134/79
[2021-10-19 13:00] VITALS: BP 121/74
[2021-10-19] MEDS ORDERED: DOCUSATE SOD 100 MG CAP PO ONE (13:00)
[2021-10-19] MEDS: OCTREOTIDE ACETATE 100 MCG/ML VL SUBCUT SCH ×2 (14:09→21:50)
[2021-10-19 17:00] VITALS: BP 134/77
[2021-10-19] MEDS: DOCUSATE SOD 100 MG CAP PO PRN (17:15)
[2021-10-19] MEDS ORDERED: MORPHINE SULFATE INJ 2 MG/ml SYRG IV ONE (21:15)
[2021-10-19] MEDS: ATORVASTATIN 20 MG TAB PO SCH (21:40)
[2021-10-19] MEDS: traZODone HCL 50 MG TAB PO SCH (21:40)
[2021-10-19] MEDS: INSULIN LANTUS (GLARGINE) 1 /0.01ml (100units/ml) SC SCH (21:48)
[2021-10-19 22:00] VITALS: BP 151/84
[2021-10-20] MEDS: HYDROcodone-ACET 5/325MG TAB PO PRN ×5 (02:32→21:40)
[2021-10-20 05:00] VITALS: BP_SYST 121; BP_SYST 64; BP_DIAS 40; BP_DIAS 78
[2021-10-20] MEDS: ACCU-CHEK COMFORT CURVE STRIP VI SCH ×4 (06:19→22:00)
[2021-10-20] MEDS: InsuLIN REG 1unit/0.01ml Soln (100units/ml) SC SCH ×4 (06:20→21:58)
[2021-10-20] MEDS: OCTREOTIDE ACETATE 100 MCG/ML VL SUBCUT SCH ×3 (06:44→21:42)
[2021-10-20] MEDS: LEVOTHYROXINE SODIUM 25 MCG TAB PO SCH (06:45)
[2021-10-20] MEDS: MIDODRINE HCL 10 MG TAB PO SCH ×3 (06:45→17:38)
[2021-10-20 09:00] VITALS: BP 147/92
[2021-10-20] MEDS ORDERED: predniSONE 5 MG TAB PO SCH (10:00)
[2021-10-20] MEDS: GABAPENTIN 300 MG CAP PO SCH ×2 (10:01→21:44)
[2021-10-20] MEDS: FLUDROCORTISONE ACETATE 0.1 MG TAB PO SCH (10:01)
[2021-10-20] MEDS: DOCUSATE SOD 100 MG CAP PO PRN (10:02)
[2021-10-20] MEDS ORDERED: OMNIPAQUE ORAL SOLN 500ml 12mg/ml PO ONE (10:52)
[2021-10-20 12:30] VITALS: BP 132/88
[2021-10-20] MEDS ORDERED: IOHEXOL 300 MG/ML 100ML BOTTLE IJ ONE (13:41)
[2021-10-20 17:00] VITALS: BP 151/94
[2021-10-20] MEDS: HYOSCYAMINE SULF 0.125 MG ODT TAB PO PRN (20:24)
[2021-10-20] MEDS: traZODone HCL 50 MG TAB PO SCH (21:43)
[2021-10-20] MEDS: ATORVASTATIN 20 MG TAB PO SCH (21:43)
[2021-10-20] MEDS: INSULIN LANTUS (GLARGINE) 1 /0.01ml (100units/ml) SC SCH (21:59)
[2021-10-20 22:00] VITALS: BP_SYST 107; BP_SYST 143; BP_DIAS 66; BP_DIAS 84
[2021-10-21] VITALS (7 sets, daily range): BP systolic 69–147; BP diastolic 36–83
[2021-10-21] MEDS: HYDROcodone-ACET 5/325MG TAB PO PRN ×3 (02:24→16:05)
[2021-10-21] MEDS: LEVOTHYROXINE SODIUM 25 MCG TAB PO SCH (06:33)
[2021-10-21] MEDS: MIDODRINE HCL 10 MG TAB PO SCH ×3 (06:34→18:19)
[2021-10-21] MEDS: ACCU-CHEK COMFORT CURVE STRIP VI SCH ×4 (06:35→22:00)
[2021-10-21] MEDS: OCTREOTIDE ACETATE 100 MCG/ML VL SUBCUT SCH ×3 (06:35→22:55)
[2021-10-21] MEDS: InsuLIN REG 1unit/0.01ml Soln (100units/ml) SC SCH ×4 (06:36→22:59)
[2021-10-21] MEDS: HYOSCYAMINE SULF 0.125 MG ODT TAB PO PRN (07:31)
[2021-10-21] MEDS: FLUDROCORTISONE ACETATE 0.1 MG TAB PO SCH (10:09)
[2021-10-21] MEDS: GABAPENTIN 300 MG CAP PO SCH ×2 (10:09→22:51)
[2021-10-21] MEDS: MORPHINE SULFATE INJ 2 MG/ml SYRG IV PRN ×3 (13:10→21:52)
[2021-10-21] MEDS: SUCRALFATE 1 GM/10 ML ORAL SUSP PO SCH ×3 (14:34→21:54)
[2021-10-21] MEDS: PANTOPRAZOLE 40 MG TAB PO SCH ×2 (14:34→22:04)
[2021-10-21 14:36] LABS: Amylase 48 U/L (25-115); Lipase 130 U/L (73-393)
[2021-10-21] MEDS: ATORVASTATIN 20 MG TAB PO SCH (21:55)
[2021-10-21] MEDS: traZODone HCL 50 MG TAB PO SCH (21:55)
[2021-10-21] MEDS: INSULIN LANTUS (GLARGINE) 1 /0.01ml (100units/ml) SC SCH (22:00)
[2021-10-22] MEDS: MORPHINE SULFATE INJ 2 MG/ml SYRG IV PRN ×5 (02:02→20:00)
[2021-10-22 05:00] VITALS: BP 120/71
[2021-10-22] MEDS: OCTREOTIDE ACETATE 100 MCG/ML VL SUBCUT SCH ×3 (06:00→22:00)
[2021-10-22] MEDS: SUCRALFATE 1 GM/10 ML ORAL SUSP PO SCH ×4 (06:27→22:16)
[2021-10-22] MEDS: MIDODRINE HCL 10 MG TAB PO SCH ×3 (06:27→18:02)
[2021-10-22] MEDS: LEVOTHYROXINE SODIUM 25 MCG TAB PO SCH (06:28)
[2021-10-22] MEDS: ACCU-CHEK COMFORT CURVE STRIP VI SCH ×4 (06:42→22:00)
[2021-10-22] MEDS: InsuLIN REG 1unit/0.01ml Soln (100units/ml) SC SCH ×4 (06:59→22:00)
[2021-10-22 09:00] VITALS: BP_SYST 111; BP_SYST 72; BP_SYST 81; BP_DIAS 40; BP_DIAS 54; BP_DIAS 72
[2021-10-22] MEDS: GABAPENTIN 300 MG CAP PO SCH ×2 (11:30→22:17)
[2021-10-22] MEDS: FLUDROCORTISONE ACETATE 0.1 MG TAB PO SCH (11:30)
[2021-10-22] MEDS: PANTOPRAZOLE 40 MG TAB PO SCH ×2 (11:30→22:17)
[2021-10-22 13:00] VITALS: BP 113/70
[2021-10-22] MEDS: HYDROcodone-ACET 5/325MG TAB PO PRN (13:45)
[2021-10-22] MEDS: [UNRECOGNIZED DRUG - OTHER] PO SCH ×2 (14:00→22:00)
[2021-10-22 14:09] LABS: INR 1.05 (0.9-1.15)
[2021-10-22 16:58] VITALS: BP 116/70
[2021-10-22 22:00] VITALS: BP 116/83
[2021-10-22] MEDS: INSULIN LANTUS (GLARGINE) 1 /0.01ml (100units/ml) SC SCH (22:00)
[2021-10-22] MEDS: traZODone HCL 50 MG TAB PO SCH (22:16)
[2021-10-22] MEDS: ATORVASTATIN 20 MG TAB PO SCH (22:17)
[2021-10-23] MEDS: MORPHINE SULFATE 4 MG/ML SYR/VIAL IV PRN ×6 (00:15→21:38)
[2021-10-23 05:06] VITALS: BP 127/67
[2021-10-23] MEDS: OCTREOTIDE ACETATE 100 MCG/ML VL SUBCUT SCH ×3 (05:45→22:30)
[2021-10-23] MEDS: MIDODRINE HCL 10 MG TAB PO SCH ×3 (05:45→17:39)
[2021-10-23] MEDS: [UNRECOGNIZED DRUG - OTHER] PO SCH ×3 (05:46→22:00)
[2021-10-23] MEDS: SUCRALFATE 1 GM/10 ML ORAL SUSP PO SCH ×2 (06:25→11:09)
[2021-10-23] MEDS: ACCU-CHEK COMFORT CURVE STRIP VI SCH ×4 (06:26→22:29)
[2021-10-23] MEDS: LEVOTHYROXINE SODIUM 25 MCG TAB PO SCH (06:26)
[2021-10-23] MEDS: InsuLIN REG 1unit/0.01ml Soln (100units/ml) SC SCH ×4 (06:26→22:40)
[2021-10-23 08:10] VITALS: BP 115/71
[2021-10-23 08:57] VITALS: BP 115/71
[2021-10-23] MEDS ORDERED: LIDOCAINE VISCOUS 2% 15ML UD ONE (09:23)
[2021-10-23] MEDS ORDERED: diphenhdrAMINE HCL 50 MG/1 ML VL ONE (09:23)
[2021-10-23 09:29] LABS: Basophils # (auto) 0.1 10 ^3/uL (0-0.2); Basophils % (auto) 1.6 % (0.0-2.0); Eosinophils # (auto) 0.4 10 ^3/uL (0-0.8); Eosinophils % (auto) 7.7 % (0.0-7.0); Hematocrit 36.6 % (36.0-46.0); Hemoglobin 13.1 g/dL (12.2-16.2); Lymphocytes # (auto) 1.8 10 ^3/uL (0.4-5.4); Lymphocytes % (auto) 33.3 % (10.0-50.0); Mean Corpuscular Hgb Conc. 35.7 g/dL (32.0-36.0); Mean Corpuscular Volume 84.1 fL (80.0-100.0); Monocytes # (auto) 0.4 10 ^3/uL (0-1.3); Monocytes % (auto) 7.2 % (0.0-12.0); Neutrophils # (auto) 2.7 10 ^3/uL (1.6-8.6); Neutrophils % (auto) 50.2 % (37.0-80.0); Nucleated Red Blood Cells % 0.2 %; Red Blood Cells 4.35 10^6/uL (4.0-5.20); Red Cell Distribution Width 13.9 % (11.8-14.3); White Blood Cell 5.4 10^3/uL (4.4-10.8)
[2021-10-23 09:43] LABS: INR 1.06 (0.9-1.15); Partial Thromboplastin Time 24.8 sec (23.6-33.0)
[2021-10-23] MEDS: GABAPENTIN 300 MG CAP PO SCH ×2 (10:00→22:29)
[2021-10-23] MEDS: PANTOPRAZOLE 40 MG TAB PO SCH ×2 (10:00→22:29)
[2021-10-23] MEDS: FLUDROCORTISONE ACETATE 0.1 MG TAB PO SCH (10:00)
[2021-10-23] MEDS ORDERED: predniSONE 5 MG TAB PO SCH (10:00)
[2021-10-23 10:02] LABS: BUN/Creatinine Ratio 20.7; Calcium 9.4 mg/dL (8.5-10.1); Potassium 3.9 mmol/L (3.5-5.1)
[2021-10-23 13:00] VITALS: BP_SYST 107; BP_SYST 76; BP_SYST 81; BP_DIAS 47; BP_DIAS 52; BP_DIAS 62
[2021-10-23] MEDS: fentaNYL CITRATE 100 MCG/2 ML VL ONE ×2 (13:44→13:47)
[2021-10-23] MEDS: MIDAZOLAM HCL 5 MG/ML-1ML VIAL ONE ×2 (13:44→13:47)
[2021-10-23 17:00] VITALS: BP 133/74
[2021-10-23] MEDS: METOCLOPRAMIDE HCL 5MG/ml INJ 2ml VIAL IV SCH ×2 (17:06→22:29)
[2021-10-23 22:00] VITALS: BP_SYST 128; BP_SYST 80; BP_SYST 84; BP_DIAS 48; BP_DIAS 49; BP_DIAS 71
[2021-10-23] MEDS: ATORVASTATIN 20 MG TAB PO SCH (22:29)
[2021-10-23] MEDS: traZODone HCL 50 MG TAB PO SCH (22:29)
[2021-10-24] MEDS: MORPHINE SULFATE 4 MG/ML SYR/VIAL IV PRN ×5 (03:51→21:21)
[2021-10-24 05:00] VITALS: BP_SYST 118; BP_SYST 75; BP_SYST 81; BP_DIAS 41; BP_DIAS 43; BP_DIAS 68
[2021-10-24] MEDS: [UNRECOGNIZED DRUG - OTHER] PO SCH ×3 (06:00→22:00)
[2021-10-24] MEDS: METOCLOPRAMIDE HCL 5MG/ml INJ 2ml VIAL IV SCH ×3 (06:24→22:20)
[2021-10-24] MEDS: MIDODRINE HCL 10 MG TAB PO SCH ×3 (06:25→16:45)
[2021-10-24] MEDS: OCTREOTIDE ACETATE 100 MCG/ML VL SUBCUT SCH ×3 (06:26→22:22)
[2021-10-24] MEDS: LEVOTHYROXINE SODIUM 25 MCG TAB PO SCH (06:26)
[2021-10-24] MEDS: InsuLIN REG 1unit/0.01ml Soln (100units/ml) SC SCH ×4 (06:27→22:36)
[2021-10-24] MEDS: ACCU-CHEK COMFORT CURVE STRIP VI SCH ×4 (06:27→22:21)
[2021-10-24 08:10] VITALS: BP 105/66
[2021-10-24 08:41] VITALS: BP 105/66
[2021-10-24] MEDS: PANTOPRAZOLE 40 MG TAB PO SCH ×2 (09:49→22:20)
[2021-10-24] MEDS: FLUDROCORTISONE ACETATE 0.1 MG TAB PO SCH (09:49)
[2021-10-24] MEDS: GABAPENTIN 300 MG CAP PO SCH ×2 (09:49→22:20)
[2021-10-24 12:46] VITALS: BP 119/72
[2021-10-24] MEDS: ERGOCALCIFEROL 50,000 UNIT(1.25MG) CAP PO SCH (13:33)
[2021-10-24 16:43] VITALS: BP 133/85
[2021-10-24 21:07] VITALS: BP_SYST 0; BP_SYST 124; BP_DIAS 69
[2021-10-24] MEDS: traZODone HCL 50 MG TAB PO SCH (22:20)
[2021-10-24] MEDS: ATORVASTATIN 20 MG TAB PO SCH (22:20)
[2021-10-25] MEDS: MORPHINE SULFATE 4 MG/ML SYR/VIAL IV PRN ×6 (02:37→22:35)
[2021-10-25 05:00] VITALS: BP_SYST 107; BP_SYST 81; BP_DIAS 44; BP_DIAS 65
[2021-10-25] MEDS: METOCLOPRAMIDE HCL 5MG/ml INJ 2ml VIAL IV SCH ×3 (05:30→21:44)
[2021-10-25] MEDS: [UNRECOGNIZED DRUG - OTHER] PO SCH ×3 (05:30→21:54)
[2021-10-25] MEDS: MIDODRINE HCL 10 MG TAB PO SCH ×3 (05:30→17:45)
[2021-10-25] MEDS: LEVOTHYROXINE SODIUM 25 MCG TAB PO SCH (05:40)
[2021-10-25] MEDS: OCTREOTIDE ACETATE 100 MCG/ML VL SUBCUT SCH ×2 (05:40→14:38)
[2021-10-25] MEDS: ACCU-CHEK COMFORT CURVE STRIP VI SCH ×4 (06:38→21:45)
[2021-10-25] MEDS: InsuLIN REG 1unit/0.01ml Soln (100units/ml) SC SCH ×4 (06:40→22:29)
[2021-10-25 09:00] VITALS: BP 137/84
[2021-10-25] MEDS: FLUDROCORTISONE ACETATE 0.1 MG TAB PO SCH ×2 (10:18→21:45)
[2021-10-25] MEDS: GABAPENTIN 300 MG CAP PO SCH ×2 (10:18→21:45)
[2021-10-25] MEDS: PANTOPRAZOLE 40 MG TAB PO SCH ×2 (10:19→21:45)
[2021-10-25 13:00] VITALS: BP 111/65
[2021-10-25 17:00] VITALS: BP_SYST 121; BP_SYST 134; BP_SYST 83; BP_DIAS 42; BP_DIAS 76; BP_DIAS 80
[2021-10-25] MEDS: traZODone HCL 50 MG TAB PO SCH (21:44)
[2021-10-25] MEDS: ATORVASTATIN 20 MG TAB PO SCH (21:45)
[2021-10-25 22:00] VITALS: BP 110/67
[2021-10-26] VITALS (9 sets, daily range): BP systolic 60–141; BP diastolic 32–83
[2021-10-26] MEDS: MORPHINE SULFATE 4 MG/ML SYR/VIAL IV PRN ×2 (03:09→09:01)
[2021-10-26 05:31] LABS: BUN/Creatinine Ratio 17.9; Calcium 8.9 mg/dL (8.5-10.1); Potassium 3.7 mmol/L (3.5-5.1)
[2021-10-26] MEDS: [UNRECOGNIZED DRUG - OTHER] PO SCH ×3 (05:35→22:00)
[2021-10-26] MEDS: ACCU-CHEK COMFORT CURVE STRIP VI SCH ×4 (06:01→23:07)
[2021-10-26] MEDS: MIDODRINE HCL 10 MG TAB PO SCH ×3 (06:01→18:00)
[2021-10-26] MEDS: METOCLOPRAMIDE HCL 5MG/ml INJ 2ml VIAL IV SCH ×3 (06:01→23:05)
[2021-10-26] MEDS: LEVOTHYROXINE SODIUM 25 MCG TAB PO SCH (06:01)
[2021-10-26] MEDS: InsuLIN REG 1unit/0.01ml Soln (100units/ml) SC SCH ×4 (06:08→23:16)
[2021-10-26] MEDS: PANTOPRAZOLE 40 MG TAB PO SCH ×2 (09:02→23:06)
[2021-10-26] MEDS: GABAPENTIN 300 MG CAP PO SCH ×2 (09:02→23:06)
[2021-10-26] MEDS: FLUDROCORTISONE ACETATE 0.1 MG TAB PO SCH ×2 (09:02→23:06)
[2021-10-26] MEDS: traMADol HCL 50 MG TAB PO PRN ×2 (13:16→20:00)
[2021-10-26] MEDS: traZODone HCL 50 MG TAB PO SCH (23:05)
[2021-10-26] MEDS: ATORVASTATIN 20 MG TAB PO SCH (23:06)
[2021-10-27] MEDS: traMADol HCL 50 MG TAB PO PRN ×4 (03:08→20:04)
[2021-10-27] MEDS: [UNRECOGNIZED DRUG - OTHER] PO SCH ×3 (05:03→22:00)
[2021-10-27 05:07] VITALS: BP 127/72
[2021-10-27] MEDS: LEVOTHYROXINE SODIUM 25 MCG TAB PO SCH (05:27)
[2021-10-27] MEDS: MIDODRINE HCL 10 MG TAB PO SCH ×3 (05:27→18:27)
[2021-10-27] MEDS: METOCLOPRAMIDE HCL 5MG/ml INJ 2ml VIAL IV SCH ×3 (05:27→23:32)
[2021-10-27] MEDS: ACCU-CHEK COMFORT CURVE STRIP VI SCH ×4 (05:28→23:34)
[2021-10-27] MEDS: InsuLIN REG 1unit/0.01ml Soln (100units/ml) SC SCH ×4 (05:30→23:37)
[2021-10-27 08:00] VITALS: BP_SYST 115; BP_SYST 116; BP_SYST 65; BP_DIAS 35; BP_DIAS 57; BP_DIAS 65
[2021-10-27] MEDS: GABAPENTIN 300 MG CAP PO SCH ×2 (09:42→23:33)
[2021-10-27] MEDS: FLUDROCORTISONE ACETATE 0.1 MG TAB PO SCH (09:42)
[2021-10-27] MEDS: PANTOPRAZOLE 40 MG TAB PO SCH ×2 (09:42→23:33)
[2021-10-27 12:00] VITALS: BP_SYST 109; BP_SYST 141; BP_SYST 89; BP_DIAS 51; BP_DIAS 70; BP_DIAS 77
[2021-10-27] MEDS: OCTREOTIDE ACETATE 100 MCG/ML VL SUBCUT SCH ×2 (15:03→23:34)
[2021-10-27 16:00] VITALS: BP_SYST 108; BP_SYST 141; BP_SYST 75; BP_DIAS 35; BP_DIAS 69; BP_DIAS 81
[2021-10-27 22:00] VITALS: BP_SYST 149; BP_SYST 173; BP_SYST 99; BP_DIAS 61; BP_DIAS 88; BP_DIAS 90
[2021-10-27] MEDS: traZODone HCL 50 MG TAB PO SCH (23:32)
[2021-10-27] MEDS: ATORVASTATIN 20 MG TAB PO SCH (23:33)
[2021-10-28] MEDS: traMADol HCL 50 MG TAB PO PRN ×3 (04:16→16:12)
[2021-10-28 05:00] VITALS: BP_SYST 125; BP_SYST 86; BP_SYST 93; BP_DIAS 53; BP_DIAS 72
[2021-10-28] MEDS: [UNRECOGNIZED DRUG - OTHER] PO SCH ×3 (05:30→22:00)
[2021-10-28] MEDS: InsuLIN REG 1unit/0.01ml Soln (100units/ml) SC SCH ×4 (05:31→23:20)
[2021-10-28] MEDS: METOCLOPRAMIDE HCL 5MG/ml INJ 2ml VIAL IV SCH ×3 (06:13→23:17)
[2021-10-28] MEDS: MIDODRINE HCL 10 MG TAB PO SCH ×3 (06:13→17:07)
[2021-10-28] MEDS: OCTREOTIDE ACETATE 100 MCG/ML VL SUBCUT SCH ×3 (06:16→23:19)
[2021-10-28] MEDS: LEVOTHYROXINE SODIUM 25 MCG TAB PO SCH (06:16)
[2021-10-28] MEDS: ACCU-CHEK COMFORT CURVE STRIP VI SCH ×4 (06:17→23:19)
[2021-10-28 09:00] VITALS: BP_SYST 112; BP_SYST 76; BP_DIAS 45; BP_DIAS 70
[2021-10-28] MEDS: FLUDROCORTISONE ACETATE 0.1 MG TAB PO SCH (09:52)
[2021-10-28] MEDS: PANTOPRAZOLE 40 MG TAB PO SCH ×2 (09:52→23:19)
[2021-10-28] MEDS: GABAPENTIN 300 MG CAP PO SCH ×2 (09:53→23:18)
[2021-10-28 13:00] VITALS: BP_SYST 151; BP_SYST 77; BP_DIAS 45; BP_DIAS 83
[2021-10-28 17:00] VITALS: BP_SYST 131; BP_SYST 70; BP_SYST 91; BP_DIAS 42; BP_DIAS 62; BP_DIAS 74
[2021-10-28 22:00] VITALS: BP_SYST 113; BP_SYST 48; BP_SYST 83; BP_DIAS 26; BP_DIAS 51; BP_DIAS 68
[2021-10-28] MEDS: traZODone HCL 50 MG TAB PO SCH (23:18)
[2021-10-28] MEDS: ATORVASTATIN 20 MG TAB PO SCH (23:18)
[2021-10-29] VITALS (8 sets, daily range): BP systolic 61–134; BP diastolic 35–80
[2021-10-29] MEDS: traMADol HCL 50 MG TAB PO PRN ×3 (03:48→21:50)
[2021-10-29] MEDS: [UNRECOGNIZED DRUG - OTHER] PO SCH ×3 (05:08→22:00)
[2021-10-29] MEDS: METOCLOPRAMIDE HCL 5MG/ml INJ 2ml VIAL IV SCH ×3 (05:59→21:51)
[2021-10-29] MEDS: MIDODRINE HCL 10 MG TAB PO SCH ×3 (05:59→16:53)
[2021-10-29] MEDS: OCTREOTIDE ACETATE 100 MCG/ML VL SUBCUT SCH ×3 (06:00→21:58)
[2021-10-29] MEDS: ACCU-CHEK COMFORT CURVE STRIP VI SCH ×4 (06:00→21:59)
[2021-10-29] MEDS: LEVOTHYROXINE SODIUM 25 MCG TAB PO SCH (06:00)
[2021-10-29] MEDS: InsuLIN REG 1unit/0.01ml Soln (100units/ml) SC SCH ×4 (06:01→22:01)
[2021-10-29] MEDS: GABAPENTIN 300 MG CAP PO SCH ×2 (09:16→21:52)
[2021-10-29] MEDS: PANTOPRAZOLE 40 MG TAB PO SCH ×2 (09:16→21:53)
[2021-10-29] MEDS: FLUDROCORTISONE ACETATE 0.1 MG TAB PO SCH (09:16)
[2021-10-29] MEDS: traZODone HCL 50 MG TAB PO SCH (21:51)
[2021-10-29] MEDS: ATORVASTATIN 20 MG TAB PO SCH (21:52)
[2021-10-30] MEDS: traMADol HCL 50 MG TAB PO PRN ×5 (02:05→22:04)
[2021-10-30 05:00] VITALS: BP_SYST 136; BP_SYST 43; BP_SYST 61; BP_DIAS 23; BP_DIAS 40; BP_DIAS 76
[2021-10-30] MEDS: [UNRECOGNIZED DRUG - OTHER] PO SCH ×3 (06:00→22:06)
[2021-10-30] MEDS: METOCLOPRAMIDE HCL 5MG/ml INJ 2ml VIAL IV SCH ×3 (06:43→22:06)
[2021-10-30] MEDS: MIDODRINE HCL 10 MG TAB PO SCH ×3 (06:43→17:14)
[2021-10-30] MEDS: OCTREOTIDE ACETATE 100 MCG/ML VL SUBCUT SCH (06:47)
[2021-10-30] MEDS: LEVOTHYROXINE SODIUM 25 MCG TAB PO SCH (06:47)
[2021-10-30] MEDS: ACCU-CHEK COMFORT CURVE STRIP VI SCH ×4 (06:48→22:05)
[2021-10-30] MEDS: InsuLIN REG 1unit/0.01ml Soln (100units/ml) SC SCH ×4 (06:49→22:08)
[2021-10-30 09:00] VITALS: BP_SYST 126; BP_SYST 70; BP_SYST 81; BP_DIAS 42; BP_DIAS 50; BP_DIAS 77
[2021-10-30] MEDS: GABAPENTIN 300 MG CAP PO SCH ×2 (11:01→22:05)
[2021-10-30] MEDS: FLUDROCORTISONE ACETATE 0.1 MG TAB PO SCH (11:02)
[2021-10-30] MEDS: PANTOPRAZOLE 40 MG TAB PO SCH ×2 (11:02→22:05)
[2021-10-30 12:57] VITALS: BP_SYST 128; BP_SYST 59; BP_SYST 82; BP_DIAS 37; BP_DIAS 54; BP_DIAS 78
[2021-10-30 17:00] VITALS: BP_SYST 125; BP_SYST 66; BP_SYST 86; BP_DIAS 40; BP_DIAS 53; BP_DIAS 75
[2021-10-30 21:57] VITALS: BP 136/76
[2021-10-30 22:00] VITALS: BP_SYST 105; BP_SYST 94; BP_DIAS 59
[2021-10-30] MEDS: traZODone HCL 50 MG TAB PO SCH (22:06)
[2021-10-30] MEDS: ATORVASTATIN 20 MG TAB PO SCH (22:09)
[2021-10-31] MEDS: traMADol HCL 50 MG TAB PO PRN ×5 (02:36→21:21)
[2021-10-31 04:59] VITALS: BP 115/57
[2021-10-31 05:02] VITALS: BP 76/45
[2021-10-31 05:41] LABS: Basophils # (auto) 0.1 10 ^3/uL (0-0.2); Basophils % (auto) 1.2 % (0.0-2.0); Eosinophils # (auto) 0.2 10 ^3/uL (0-0.8); Eosinophils % (auto) 3.5 % (0.0-7.0); Hematocrit 33.8 % (36.0-46.0); Lymphocytes # (auto) 1.8 10 ^3/uL (0.4-5.4); Lymphocytes % (auto) 33.3 % (10.0-50.0); Mean Corpuscular Hgb Conc. 35.4 g/dL (32.0-36.0); Mean Corpuscular Volume 84.6 fL (80.0-100.0); Monocytes # (auto) 0.4 10 ^3/uL (0-1.3); Monocytes % (auto) 7.5 % (0.0-12.0); Neutrophils % (auto) 54.5 % (37.0-80.0); Nucleated Red Blood Cells % 0.1 %; Red Blood Cells 3.99 10^6/uL (4.0-5.20); White Blood Cell 5.5 10^3/uL (4.4-10.8)
[2021-10-31 05:45] LABS: Potassium 3.4 mmol/L (3.5-5.1)
[2021-10-31 05:49] LABS: BUN/Creatinine Ratio 21.7; Calcium 8.9 mg/dL (8.5-10.1)
[2021-10-31] MEDS: ACCU-CHEK COMFORT CURVE STRIP VI SCH ×4 (06:19→22:59)
[2021-10-31] MEDS: InsuLIN REG 1unit/0.01ml Soln (100units/ml) SC SCH ×4 (06:19→21:12)
[2021-10-31] MEDS: METOCLOPRAMIDE HCL 5MG/ml INJ 2ml VIAL IV SCH (06:42)
[2021-10-31] MEDS: [UNRECOGNIZED DRUG - OTHER] PO SCH ×3 (06:42→21:20)
[2021-10-31] MEDS: LEVOTHYROXINE SODIUM 25 MCG TAB PO SCH (06:43)
[2021-10-31] MEDS: MIDODRINE HCL 10 MG TAB PO SCH ×3 (06:43→17:27)
[2021-10-31 09:00] VITALS: BP_SYST 102; BP_SYST 74; BP_DIAS 44; BP_DIAS 55
[2021-10-31] MEDS: PANTOPRAZOLE 40 MG TAB PO SCH ×2 (10:58→21:24)
[2021-10-31] MEDS: FLUDROCORTISONE ACETATE 0.1 MG TAB PO SCH (10:58)
[2021-10-31] MEDS: GABAPENTIN 300 MG CAP PO SCH ×2 (10:58→21:21)
[2021-10-31 13:00] VITALS: BP_SYST 106; BP_SYST 87; BP_DIAS 47; BP_DIAS 65
[2021-10-31] MEDS: ERGOCALCIFEROL 50,000 UNIT(1.25MG) CAP PO SCH (13:38)
[2021-10-31 17:00] VITALS: BP_SYST 119; BP_SYST 61; BP_SYST 80; BP_DIAS 37; BP_DIAS 42; BP_DIAS 66
[2021-10-31] MEDS: METOCLOPRAMIDE HCL 10 MG TAB PO SCH ×2 (17:28→21:21)
[2021-10-31] MEDS: ATORVASTATIN 20 MG TAB PO SCH (21:20)
[2021-10-31] MEDS: traZODone HCL 50 MG TAB PO SCH (21:20)
[2021-10-31 22:00] VITALS: BP_SYST 139; BP_SYST 67; BP_SYST 88; BP_DIAS 39; BP_DIAS 64; BP_DIAS 72
[2021-11-01] MEDS: traMADol HCL 50 MG TAB PO PRN ×3 (02:37→18:30)
[2021-11-01 05:00] VITALS: BP_SYST 131; BP_SYST 71; BP_SYST 93; BP_DIAS 44; BP_DIAS 46; BP_DIAS 77
[2021-11-01] MEDS: [UNRECOGNIZED DRUG - OTHER] PO SCH ×3 (06:24→21:31)
[2021-11-01] MEDS: METOCLOPRAMIDE HCL 10 MG TAB PO SCH ×4 (06:25→21:32)
[2021-11-01] MEDS: InsuLIN REG 1unit/0.01ml Soln (100units/ml) SC SCH ×4 (06:25→22:00)
[2021-11-01] MEDS: MIDODRINE HCL 10 MG TAB PO SCH ×3 (06:25→18:24)
[2021-11-01] MEDS: LEVOTHYROXINE SODIUM 25 MCG TAB PO SCH (06:25)
[2021-11-01] MEDS: ACCU-CHEK COMFORT CURVE STRIP VI SCH ×4 (06:25→20:55)
[2021-11-01 09:00] VITALS: BP_SYST 112; BP_SYST 75; BP_DIAS 46; BP_DIAS 73
[2021-11-01] MEDS: PANTOPRAZOLE 40 MG TAB PO SCH ×2 (09:26→21:32)
[2021-11-01] MEDS: FLUDROCORTISONE ACETATE 0.1 MG TAB PO SCH (09:27)
[2021-11-01] MEDS: GABAPENTIN 300 MG CAP PO SCH ×2 (09:27→21:31)
[2021-11-01 13:00] VITALS: BP_SYST 150; BP_SYST 81; BP_SYST 95; BP_DIAS 59; BP_DIAS 63; BP_DIAS 87
[2021-11-01 17:00] VITALS: BP_SYST 136; BP_SYST 70; BP_SYST 85; BP_DIAS 49; BP_DIAS 56; BP_DIAS 83
[2021-11-01 20:00] VITALS: BP 139/80
[2021-11-01] MEDS: traZODone HCL 50 MG TAB PO SCH (21:31)
[2021-11-01] MEDS: ATORVASTATIN 20 MG TAB PO SCH (21:31)
[2021-11-01 22:00] VITALS: BP 139/85
[2021-11-02 05:00] VITALS: BP 124/78
[2021-11-02] MEDS: traMADol HCL 50 MG TAB PO PRN ×3 (05:06→21:29)
[2021-11-02] MEDS: METOCLOPRAMIDE HCL 10 MG TAB PO SCH ×4 (06:56→21:29)
[2021-11-02] MEDS: [UNRECOGNIZED DRUG - OTHER] PO SCH ×3 (06:56→21:29)
[2021-11-02] MEDS: MIDODRINE HCL 10 MG TAB PO SCH ×3 (06:56→17:17)
[2021-11-02] MEDS: InsuLIN REG 1unit/0.01ml Soln (100units/ml) SC SCH ×4 (06:57→21:31)
[2021-11-02] MEDS: ACCU-CHEK COMFORT CURVE STRIP VI SCH ×4 (06:57→21:29)
[2021-11-02] MEDS: LEVOTHYROXINE SODIUM 25 MCG TAB PO SCH (06:57)
[2021-11-02 09:16] VITALS: BP_SYST 128; BP_SYST 76; BP_DIAS 47; BP_DIAS 77
[2021-11-02] MEDS: GABAPENTIN 300 MG CAP PO SCH ×2 (09:28→21:29)
[2021-11-02] MEDS: PANTOPRAZOLE 40 MG TAB PO SCH ×2 (09:29→21:29)
[2021-11-02] MEDS: FLUDROCORTISONE ACETATE 0.1 MG TAB PO SCH ×2 (09:29→21:30)
[2021-11-02 13:00] VITALS: BP 105/70
[2021-11-02 17:07] VITALS: BP_SYST 142; BP_SYST 76; BP_DIAS 47; BP_DIAS 72
[2021-11-02] MEDS: traZODone HCL 50 MG TAB PO SCH (21:29)
[2021-11-02] MEDS: ATORVASTATIN 20 MG TAB PO SCH (21:30)
[2021-11-02 22:00] VITALS: BP 145/79
[2021-11-03] VITALS (7 sets, daily range): BP systolic 53–149; BP diastolic 41–89
[2021-11-03] MEDS: MIDODRINE HCL 10 MG TAB PO SCH ×3 (05:34→17:53)
[2021-11-03] MEDS: [UNRECOGNIZED DRUG - OTHER] PO SCH ×3 (05:34→21:39)
[2021-11-03] MEDS: InsuLIN REG 1unit/0.01ml Soln (100units/ml) SC SCH ×4 (07:00→22:19)
[2021-11-03] MEDS: METOCLOPRAMIDE HCL 10 MG TAB PO SCH ×4 (07:25→21:40)
[2021-11-03] MEDS: ACCU-CHEK COMFORT CURVE STRIP VI SCH ×4 (07:25→22:15)
[2021-11-03] MEDS: LEVOTHYROXINE SODIUM 25 MCG TAB PO SCH (07:25)
[2021-11-03] MEDS: FLUDROCORTISONE ACETATE 0.1 MG TAB PO SCH ×2 (10:08→21:40)
[2021-11-03] MEDS: GABAPENTIN 300 MG CAP PO SCH ×2 (10:08→21:40)
[2021-11-03] MEDS: PANTOPRAZOLE 40 MG TAB PO SCH ×2 (10:08→21:40)
[2021-11-03] MEDS: traMADol HCL 50 MG TAB PO PRN ×3 (10:23→21:41)
[2021-11-03] MEDS: traZODone HCL 50 MG TAB PO SCH (21:39)
[2021-11-03] MEDS: ATORVASTATIN 20 MG TAB PO SCH (21:40)
[2021-11-04] MEDS: traMADol HCL 50 MG TAB PO PRN ×3 (04:43→16:17)
[2021-11-04 05:00] VITALS: BP_SYST 103; BP_SYST 69; BP_DIAS 40; BP_DIAS 66
[2021-11-04] MEDS: [UNRECOGNIZED DRUG - OTHER] PO SCH ×3 (06:17→21:00)
[2021-11-04] MEDS: METOCLOPRAMIDE HCL 10 MG TAB PO SCH ×4 (06:17→21:01)
[2021-11-04] MEDS: LEVOTHYROXINE SODIUM 25 MCG TAB PO SCH (06:17)
[2021-11-04] MEDS: MIDODRINE HCL 10 MG TAB PO SCH ×3 (06:17→17:45)
[2021-11-04] MEDS: ACCU-CHEK COMFORT CURVE STRIP VI SCH ×4 (06:18→21:01)
[2021-11-04] MEDS: InsuLIN REG 1unit/0.01ml Soln (100units/ml) SC SCH ×4 (06:18→21:13)
[2021-11-04 09:00] VITALS: BP 108/64
[2021-11-04] MEDS: FLUDROCORTISONE ACETATE 0.1 MG TAB PO SCH ×2 (10:43→21:01)
[2021-11-04] MEDS: GABAPENTIN 300 MG CAP PO SCH ×2 (10:43→21:01)
[2021-11-04] MEDS: PANTOPRAZOLE 40 MG TAB PO SCH ×2 (10:43→21:01)
[2021-11-04 13:00] VITALS: BP_SYST 107; BP_SYST 126; BP_SYST 65; BP_DIAS 44; BP_DIAS 62; BP_DIAS 74
[2021-11-04 17:00] VITALS: BP_SYST 110; BP_SYST 144; BP_SYST 75; BP_DIAS 45; BP_DIAS 76; BP_DIAS 81
[2021-11-04] MEDS: traZODone HCL 50 MG TAB PO SCH (21:00)
[2021-11-04] MEDS: ATORVASTATIN 20 MG TAB PO SCH (21:01)
[2021-11-04 23:08] VITALS: BP 105/67
[2021-11-05 05:00] VITALS: BP_SYST 132; BP_SYST 56; BP_SYST 76; BP_DIAS 33; BP_DIAS 44; BP_DIAS 74
[2021-11-05] MEDS: traMADol HCL 50 MG TAB PO PRN ×3 (05:16→22:29)
[2021-11-05] MEDS: ACCU-CHEK COMFORT CURVE STRIP VI SCH ×4 (06:14→22:26)
[2021-11-05] MEDS: [UNRECOGNIZED DRUG - OTHER] PO SCH ×3 (06:14→22:23)
[2021-11-05] MEDS: LEVOTHYROXINE SODIUM 25 MCG TAB PO SCH (06:14)
[2021-11-05] MEDS: MIDODRINE HCL 10 MG TAB PO SCH ×3 (06:14→18:23)
[2021-11-05] MEDS: METOCLOPRAMIDE HCL 10 MG TAB PO SCH ×4 (06:14→22:25)
[2021-11-05] MEDS: InsuLIN REG 1unit/0.01ml Soln (100units/ml) SC SCH ×4 (06:15→22:00)
[2021-11-05 07:25] LABS: BUN/Creatinine Ratio 16.9; Calcium 8.9 mg/dL (8.5-10.1); Potassium 3.7 mmol/L (3.5-5.1)
[2021-11-05 09:00] VITALS: BP 118/69
[2021-11-05] MEDS: FLUDROCORTISONE ACETATE 0.1 MG TAB PO SCH (09:27)
[2021-11-05] MEDS: GABAPENTIN 300 MG CAP PO SCH ×2 (09:27→22:24)
[2021-11-05] MEDS: PANTOPRAZOLE 40 MG TAB PO SCH ×2 (09:27→22:24)
[2021-11-05 13:00] VITALS: BP 115/72
[2021-11-05 17:00] VITALS: BP 134/74
[2021-11-05 22:00] VITALS: BP_SYST 132; BP_SYST 63; BP_SYST 98; BP_DIAS 43; BP_DIAS 61; BP_DIAS 62
[2021-11-05] MEDS: ATORVASTATIN 20 MG TAB PO SCH (22:24)
[2021-11-05] MEDS: traZODone HCL 50 MG TAB PO SCH (22:24)
[2021-11-06] MEDS: SODIUM CHLORIDE 0.9% 1,000 ML IV SCH ×2 (03:19→12:36)
[2021-11-06] MEDS: traMADol HCL 50 MG TAB PO PRN ×3 (03:47→16:00)
[2021-11-06 05:00] VITALS: BP 125/67
[2021-11-06] MEDS: METOCLOPRAMIDE HCL 10 MG TAB PO SCH ×4 (06:04→23:15)
[2021-11-06] MEDS: MIDODRINE HCL 10 MG TAB PO SCH (06:04)
[2021-11-06] MEDS: [UNRECOGNIZED DRUG - OTHER] PO SCH ×3 (06:04→23:17)
[2021-11-06] MEDS: LEVOTHYROXINE SODIUM 25 MCG TAB PO SCH (06:05)
[2021-11-06] MEDS: ACCU-CHEK COMFORT CURVE STRIP VI SCH ×4 (06:05→23:16)
[2021-11-06] MEDS: InsuLIN REG 1unit/0.01ml Soln (100units/ml) SC SCH ×4 (06:12→23:27)
[2021-11-06 09:14] VITALS: BP 116/63
[2021-11-06] MEDS: PANTOPRAZOLE 40 MG TAB PO SCH ×2 (10:16→23:13)
[2021-11-06] MEDS: GABAPENTIN 300 MG CAP PO SCH ×2 (10:16→23:14)
[2021-11-06] MEDS ORDERED: HYDROCORTISONE SOD SUCC 100 MG/2ML INJ VIAL IV ONE (10:30)
[2021-11-06 13:00] VITALS: BP 148/92
[2021-11-06 16:35] VITALS: BP 136/80
[2021-11-06 22:00] VITALS: BP 125/71
[2021-11-06] MEDS: HYDROCORTISONE SOD SUCC 100 MG/2ML INJ VIAL IV SCH (23:12)
[2021-11-06] MEDS: ATORVASTATIN 20 MG TAB PO SCH (23:13)
[2021-11-06] MEDS: traZODone HCL 50 MG TAB PO SCH (23:14)
[2021-11-07] MEDS: SODIUM CHLORIDE 0.9% 1,000 ML IV SCH (03:19)
[2021-11-07] MEDS: traMADol HCL 50 MG TAB PO PRN ×4 (04:39→21:28)
[2021-11-07 05:00] VITALS: BP_SYST 104; BP_SYST 143; BP_SYST 87; BP_DIAS 47; BP_DIAS 69; BP_DIAS 73
[2021-11-07] MEDS: [UNRECOGNIZED DRUG - OTHER] PO SCH (06:27)
[2021-11-07] MEDS: METOCLOPRAMIDE HCL 10 MG TAB PO SCH ×4 (06:28→21:50)
[2021-11-07] MEDS: InsuLIN REG 1unit/0.01ml Soln (100units/ml) SC SCH ×4 (06:28→21:26)
[2021-11-07] MEDS: LEVOTHYROXINE SODIUM 25 MCG TAB PO SCH (06:28)
[2021-11-07] MEDS: ACCU-CHEK COMFORT CURVE STRIP VI SCH ×4 (06:29→21:27)
[2021-11-07 08:53] VITALS: BP_SYST 116; BP_SYST 77; BP_DIAS 52; BP_DIAS 68
[2021-11-07] MEDS: PANTOPRAZOLE 40 MG TAB PO SCH ×2 (10:21→21:50)
[2021-11-07] MEDS: HYDROCORTISONE SOD SUCC 100 MG/2ML INJ VIAL IV SCH ×2 (10:22→21:49)
[2021-11-07] MEDS: GABAPENTIN 300 MG CAP PO SCH ×2 (10:22→21:50)
[2021-11-07 12:54] VITALS: BP_SYST 109; BP_SYST 114; BP_SYST 76; BP_DIAS 45; BP_DIAS 51; BP_DIAS 56
[2021-11-07] MEDS: ERGOCALCIFEROL 50,000 UNIT(1.25MG) CAP PO SCH (13:30)
[2021-11-07 16:53] VITALS: BP_SYST 102; BP_SYST 129; BP_SYST 86; BP_DIAS 54; BP_DIAS 68
[2021-11-07] MEDS: ATORVASTATIN 20 MG TAB PO SCH (21:49)
[2021-11-07] MEDS: traZODone HCL 50 MG TAB PO SCH (21:49)
[2021-11-07 22:00] VITALS: BP 149/78
[2021-11-08] VITALS (7 sets, daily range): BP systolic 74–136; BP diastolic 36–77
[2021-11-08] MEDS: traMADol HCL 50 MG TAB PO PRN ×5 (02:18→22:22)
[2021-11-08] MEDS: InsuLIN REG 1unit/0.01ml Soln (100units/ml) SC SCH ×4 (06:31→22:09)
[2021-11-08] MEDS: LEVOTHYROXINE SODIUM 25 MCG TAB PO SCH (06:32)
[2021-11-08] MEDS: METOCLOPRAMIDE HCL 10 MG TAB PO SCH ×4 (06:32→22:08)
[2021-11-08] MEDS: ACCU-CHEK COMFORT CURVE STRIP VI SCH ×4 (06:33→22:08)
[2021-11-08 08:59] LABS: BUN/Creatinine Ratio 21.4; Calcium 8.5 mg/dL (8.5-10.1); Potassium 3.2 mmol/L (3.5-5.1)
[2021-11-08] MEDS: HYDROCORTISONE SOD SUCC 100 MG/2ML INJ VIAL IV SCH ×2 (11:11→22:10)
[2021-11-08] MEDS: PANTOPRAZOLE 40 MG TAB PO SCH ×2 (11:12→22:08)
[2021-11-08] MEDS: GABAPENTIN 300 MG CAP PO SCH ×2 (11:12→22:08)
[2021-11-08] MEDS ORDERED: POTASSIUM CHL 20 Meq TABLET PO ONE (14:15)
[2021-11-08] MEDS: ATORVASTATIN 20 MG TAB PO SCH (22:08)
[2021-11-08] MEDS: traZODone HCL 50 MG TAB PO SCH (22:08)
[2021-11-09] VITALS (7 sets, daily range): BP systolic 86–155; BP diastolic 51–95
[2021-11-09] MEDS: ACCU-CHEK COMFORT CURVE STRIP VI SCH ×4 (06:27→21:53)
[2021-11-09] MEDS: LEVOTHYROXINE SODIUM 25 MCG TAB PO SCH (06:27)
[2021-11-09] MEDS: METOCLOPRAMIDE HCL 10 MG TAB PO SCH ×4 (06:27→21:56)
[2021-11-09] MEDS: traMADol HCL 50 MG TAB PO PRN ×5 (06:30→22:17)
[2021-11-09] MEDS: InsuLIN REG 1unit/0.01ml Soln (100units/ml) SC SCH ×4 (06:31→21:53)
[2021-11-09] MEDS: HYDROCORTISONE SOD SUCC 100 MG/2ML INJ VIAL IV SCH (10:20)
[2021-11-09] MEDS: PANTOPRAZOLE 40 MG TAB PO SCH ×2 (10:20→21:55)
[2021-11-09] MEDS: GABAPENTIN 300 MG CAP PO SCH ×2 (10:20→21:55)
[2021-11-09] MEDS: DOCUSATE SOD 100 MG CAP PO PRN (18:02)
[2021-11-09] MEDS: ATORVASTATIN 20 MG TAB PO SCH (21:54)
[2021-11-09] MEDS: traZODone HCL 50 MG TAB PO SCH (21:55)
[2021-11-09] MEDS: HYDROCORTISONE 10 MG TAB PO SCH (21:56)
[2021-11-10] MEDS: traMADol HCL 50 MG TAB PO PRN ×4 (03:27→20:35)
[2021-11-10 05:00] VITALS: BP 125/70
[2021-11-10] MEDS: InsuLIN REG 1unit/0.01ml Soln (100units/ml) SC SCH ×4 (06:29→22:28)
[2021-11-10] MEDS: LEVOTHYROXINE SODIUM 25 MCG TAB PO SCH (06:32)
[2021-11-10] MEDS: ACCU-CHEK COMFORT CURVE STRIP VI SCH ×4 (06:33→22:28)
[2021-11-10] MEDS: METOCLOPRAMIDE HCL 10 MG TAB PO SCH ×4 (06:33→22:15)
[2021-11-10 09:00] VITALS: BP_SYST 109; BP_SYST 83; BP_DIAS 42; BP_DIAS 57; BP_DIAS 63
[2021-11-10] MEDS: GABAPENTIN 300 MG CAP PO SCH ×2 (09:41→22:14)
[2021-11-10] MEDS: PANTOPRAZOLE 40 MG TAB PO SCH ×2 (09:42→22:14)
[2021-11-10] MEDS: HYDROCORTISONE 10 MG TAB PO SCH (09:42)
[2021-11-10 13:00] VITALS: BP_SYST 134; BP_SYST 77; BP_SYST 98; BP_DIAS 43; BP_DIAS 65; BP_DIAS 83
[2021-11-10 17:00] VITALS: BP_SYST 120; BP_SYST 133; BP_SYST 96; BP_DIAS 63; BP_DIAS 79; BP_DIAS 85
[2021-11-10 22:00] VITALS: BP_SYST 113; BP_SYST 139; BP_SYST 164; BP_DIAS 64; BP_DIAS 82; BP_DIAS 96
[2021-11-10] MEDS ORDERED: HYDROCORTISONE 10 MG TAB PO SCH (22:00)
[2021-11-10] MEDS: traZODone HCL 50 MG TAB PO SCH (22:14)
[2021-11-10] MEDS: ATORVASTATIN 20 MG TAB PO SCH (22:15)
[2021-11-11] MEDS: traMADol HCL 50 MG TAB PO PRN ×5 (00:28→23:02)
[2021-11-11] MEDS: METOCLOPRAMIDE HCL 10 MG TAB PO SCH ×4 (06:33→23:02)
[2021-11-11] MEDS: LEVOTHYROXINE SODIUM 50 MCG TAB PO SCH (06:33)
[2021-11-11] MEDS: ACCU-CHEK COMFORT CURVE STRIP VI SCH ×4 (06:35→22:00)
[2021-11-11] MEDS: InsuLIN REG 1unit/0.01ml Soln (100units/ml) SC SCH ×4 (06:35→23:03)
[2021-11-11 09:00] VITALS: BP_SYST 132; BP_SYST 81; BP_DIAS 51; BP_DIAS 87
[2021-11-11] MEDS: GABAPENTIN 300 MG CAP PO SCH ×2 (10:40→23:01)
[2021-11-11] MEDS: PANTOPRAZOLE 40 MG TAB PO SCH ×2 (10:41→23:01)
[2021-11-11] MEDS ORDERED: HYDROCORTISONE 10 MG TAB PO ONE (12:00)
[2021-11-11 13:00] VITALS: BP_SYST 119; BP_SYST 61; BP_SYST 89; BP_DIAS 40; BP_DIAS 56; BP_DIAS 74
[2021-11-11 17:00] VITALS: BP_SYST 122; BP_SYST 75; BP_SYST 87; BP_DIAS 39; BP_DIAS 48; BP_DIAS 72
[2021-11-11] MEDS: HYDROCORTISONE 10 MG TAB PO SCH (22:00)
[2021-11-11] MEDS: traZODone HCL 50 MG TAB PO SCH (23:01)
[2021-11-11] MEDS: ATORVASTATIN 20 MG TAB PO SCH (23:01)
[2021-11-11 23:41] VITALS: BP 141/85
[2021-11-12] MEDS: traMADol HCL 50 MG TAB PO PRN ×3 (03:37→22:47)
[2021-11-12 06:01] VITALS: BP 140/79
[2021-11-12 06:02] VITALS: BP 92/57
[2021-11-12] MEDS: LEVOTHYROXINE SODIUM 50 MCG TAB PO SCH (06:14)
[2021-11-12] MEDS: METOCLOPRAMIDE HCL 10 MG TAB PO SCH ×4 (06:14→22:34)
[2021-11-12] MEDS: ACCU-CHEK COMFORT CURVE STRIP VI SCH ×4 (06:16→22:35)
[2021-11-12] MEDS: InsuLIN REG 1unit/0.01ml Soln (100units/ml) SC SCH ×4 (06:16→22:36)
[2021-11-12 08:18] LABS: Basophils # (auto) 0 10 ^3/uL (0-0.2); Basophils % (auto) 0.5 % (0.0-2.0); Eosinophils # (auto) 0.2 10 ^3/uL (0-0.8); Eosinophils % (auto) 2.8 % (0.0-7.0); Hematocrit 35.3 % (36.0-46.0); Hemoglobin 12.4 g/dL (12.2-16.2); Lymphocytes # (auto) 1.9 10 ^3/uL (0.4-5.4); Lymphocytes % (auto) 29.4 % (10.0-50.0); Mean Corpuscular Hemoglobin 29.8 pg (28.0-32.0); Mean Corpuscular Volume 85.1 fL (80.0-100.0); Monocytes # (auto) 0.5 10 ^3/uL (0-1.3); Monocytes % (auto) 7.4 % (0.0-12.0); Neutrophils # (auto) 3.9 10 ^3/uL (1.6-8.6); Neutrophils % (auto) 59.9 % (37.0-80.0); Red Blood Cells 4.15 10^6/uL (4.0-5.20); Red Cell Distribution Width 14.1 % (11.8-14.3); White Blood Cell 6.6 10^3/uL (4.4-10.8)
[2021-11-12 08:46] LABS: Calcium 8.6 mg/dL (8.5-10.1); Potassium 3.5 mmol/L (3.5-5.1)
[2021-11-12 09:00] VITALS: BP_SYST 103; BP_SYST 75; BP_SYST 85; BP_DIAS 43; BP_DIAS 62; BP_DIAS 69
[2021-11-12] MEDS: HYDROCORTISONE 10 MG TAB PO SCH ×2 (09:24→22:00)
[2021-11-12] MEDS: PANTOPRAZOLE 40 MG TAB PO SCH ×2 (09:25→22:34)
[2021-11-12] MEDS: GABAPENTIN 300 MG CAP PO SCH ×2 (09:25→22:34)
[2021-11-12] MEDS: DOCUSATE SOD 100 MG CAP PO PRN (09:25)
[2021-11-12 13:00] VITALS: BP_SYST 109; BP_SYST 5; BP_DIAS 72
[2021-11-12] MEDS: ACETAMINOPHEN 325 MG TAB PO PRN (14:03)
[2021-11-12 17:00] VITALS: BP 121/79
[2021-11-12 22:00] VITALS: BP_SYST 103; BP_SYST 69; BP_SYST 97; BP_DIAS 38; BP_DIAS 56; BP_DIAS 64
[2021-11-12] MEDS: traZODone HCL 50 MG TAB PO SCH (22:33)
[2021-11-12] MEDS: ATORVASTATIN 20 MG TAB PO SCH (22:34)
[2021-11-13 05:00] VITALS: BP 113/68
[2021-11-13] MEDS: traMADol HCL 50 MG TAB PO PRN ×4 (05:14→22:44)
[2021-11-13] MEDS: METOCLOPRAMIDE HCL 10 MG TAB PO SCH ×4 (06:40→22:45)
[2021-11-13] MEDS: LEVOTHYROXINE SODIUM 50 MCG TAB PO SCH (06:40)
[2021-11-13] MEDS: InsuLIN REG 1unit/0.01ml Soln (100units/ml) SC SCH ×4 (06:41→22:49)
[2021-11-13] MEDS: ACCU-CHEK COMFORT CURVE STRIP VI SCH ×4 (06:41→22:48)
[2021-11-13 09:00] VITALS: BP_SYST 113; BP_SYST 73; BP_DIAS 47; BP_DIAS 77
[2021-11-13] MEDS: GABAPENTIN 300 MG CAP PO SCH ×2 (09:21→22:45)
[2021-11-13] MEDS: PANTOPRAZOLE 40 MG TAB PO SCH ×2 (09:21→22:45)
[2021-11-13] MEDS: HYDROCORTISONE 10 MG TAB PO SCH ×2 (09:22→22:46)
[2021-11-13] MEDS ORDERED: MIDODRINE HCL 10 MG TAB PO ONE (11:30)
[2021-11-13 13:00] VITALS: BP 105/71
[2021-11-13 17:27] VITALS: BP 114/79
[2021-11-13] MEDS: MIDODRINE HCL 10 MG TAB PO SCH (19:50)
[2021-11-13 22:00] VITALS: BP 115/71
[2021-11-13] MEDS: traZODone HCL 50 MG TAB PO SCH (22:45)
[2021-11-13] MEDS: ATORVASTATIN 20 MG TAB PO SCH (22:45)
[2021-11-14] MEDS: MIDODRINE HCL 10 MG TAB PO SCH ×3 (03:16→19:54)
[2021-11-14] MEDS: ACCU-CHEK COMFORT CURVE STRIP VI SCH ×4 (06:27→22:14)
[2021-11-14] MEDS: LEVOTHYROXINE SODIUM 50 MCG TAB PO SCH (06:27)
[2021-11-14] MEDS: METOCLOPRAMIDE HCL 10 MG TAB PO SCH ×4 (06:27→22:13)
[2021-11-14] MEDS: InsuLIN REG 1unit/0.01ml Soln (100units/ml) SC SCH ×4 (06:27→22:15)
[2021-11-14] MEDS: traMADol HCL 50 MG TAB PO PRN ×3 (06:28→22:15)
[2021-11-14] MEDS: PANTOPRAZOLE 40 MG TAB PO SCH ×2 (09:02→22:13)
[2021-11-14] MEDS: GABAPENTIN 300 MG CAP PO SCH ×2 (09:02→22:14)
[2021-11-14] MEDS: HYDROCORTISONE 10 MG TAB PO SCH ×2 (09:03→22:13)
[2021-11-14 13:00] VITALS: BP_SYST 130; BP_SYST 64; BP_SYST 92; BP_DIAS 45; BP_DIAS 53; BP_DIAS 74
[2021-11-14] MEDS: ERGOCALCIFEROL 50,000 UNIT(1.25MG) CAP PO SCH (16:26)
[2021-11-14 17:00] VITALS: BP 149/85
[2021-11-14 22:00] VITALS: BP 117/72
[2021-11-14] MEDS: traZODone HCL 50 MG TAB PO SCH (22:13)
[2021-11-14] MEDS: ATORVASTATIN 20 MG TAB PO SCH (22:14)
[2021-11-15] MEDS: MIDODRINE HCL 10 MG TAB PO SCH ×3 (04:03→21:39)
[2021-11-15] MEDS: traMADol HCL 50 MG TAB PO PRN ×3 (04:04→21:52)
[2021-11-15] MEDS: HYOSCYAMINE SULF 0.125 MG ODT TAB PO PRN (04:08)
[2021-11-15 05:00] VITALS: BP 139/82
[2021-11-15] MEDS: InsuLIN REG 1unit/0.01ml Soln (100units/ml) SC SCH ×4 (06:15→23:48)
[2021-11-15] MEDS: ACCU-CHEK COMFORT CURVE STRIP VI SCH ×4 (06:15→21:45)
[2021-11-15] MEDS: METOCLOPRAMIDE HCL 10 MG TAB PO SCH ×4 (06:27→21:42)
[2021-11-15] MEDS: LEVOTHYROXINE SODIUM 50 MCG TAB PO SCH (06:28)
[2021-11-15 09:00] VITALS: BP 126/79
[2021-11-15] MEDS: HYDROCORTISONE 10 MG TAB PO SCH ×2 (10:05→21:43)
[2021-11-15] MEDS: GABAPENTIN 300 MG CAP PO SCH ×2 (10:06→21:40)
[2021-11-15] MEDS: PANTOPRAZOLE 40 MG TAB PO SCH ×2 (10:06→21:40)
[2021-11-15] MEDS: DOCUSATE SOD 100 MG CAP PO PRN (10:34)
[2021-11-15 13:00] VITALS: BP_SYST 118; BP_SYST 74; BP_SYST 92; BP_DIAS 11; BP_DIAS 59; BP_DIAS 77
[2021-11-15] MEDS: DROXIDOPA 100 MG PO SCH ×2 (16:47→21:44)
[2021-11-15 17:00] VITALS: BP 115/73
[2021-11-15] MEDS: traZODone HCL 50 MG TAB PO SCH (21:41)
[2021-11-15] MEDS: ATORVASTATIN 20 MG TAB PO SCH (21:41)
[2021-11-15 22:00] VITALS: BP_SYST 121; BP_SYST 132; BP_SYST 69; BP_DIAS 43; BP_DIAS 75; BP_DIAS 76
[2021-11-16] MEDS: MIDODRINE HCL 10 MG TAB PO SCH ×3 (03:47→18:21)
[2021-11-16 05:00] VITALS: BP 113/73
[2021-11-16] MEDS: DROXIDOPA 100 MG PO SCH ×3 (06:54→22:10)
[2021-11-16] MEDS: METOCLOPRAMIDE HCL 10 MG TAB PO SCH ×4 (06:54→22:12)
[2021-11-16] MEDS: InsuLIN REG 1unit/0.01ml Soln (100units/ml) SC SCH ×4 (06:55→22:04)
[2021-11-16] MEDS: LEVOTHYROXINE SODIUM 50 MCG TAB PO SCH (06:55)
[2021-11-16] MEDS: ACCU-CHEK COMFORT CURVE STRIP VI SCH ×4 (06:55→22:01)
[2021-11-16 09:00] VITALS: BP 135/80
[2021-11-16] MEDS: GABAPENTIN 300 MG CAP PO SCH ×2 (10:15→22:11)
[2021-11-16] MEDS: PANTOPRAZOLE 40 MG TAB PO SCH ×2 (10:16→22:11)
[2021-11-16] MEDS: HYDROCORTISONE 10 MG TAB PO SCH ×2 (10:22→22:10)
[2021-11-16] MEDS: traMADol HCL 50 MG TAB PO PRN ×2 (12:01→22:12)
[2021-11-16 13:00] VITALS: BP 128/80
[2021-11-16 17:00] VITALS: BP 147/83
[2021-11-16 22:00] VITALS: BP 118/76
[2021-11-16] MEDS: traZODone HCL 50 MG TAB PO SCH (22:10)
[2021-11-16] MEDS: ATORVASTATIN 20 MG TAB PO SCH (22:11)
[2021-11-17] MEDS: MIDODRINE HCL 10 MG TAB PO SCH ×3 (03:55→18:43)
[2021-11-17 05:00] VITALS: BP_SYST 0; BP_SYST 153; BP_DIAS 94
[2021-11-17] MEDS: METOCLOPRAMIDE HCL 10 MG TAB PO SCH ×4 (06:24→21:15)
[2021-11-17] MEDS: ACCU-CHEK COMFORT CURVE STRIP VI SCH ×4 (06:24→21:15)
[2021-11-17] MEDS: DROXIDOPA 100 MG PO SCH ×3 (06:24→21:12)
[2021-11-17] MEDS: LEVOTHYROXINE SODIUM 50 MCG TAB PO SCH (06:24)
[2021-11-17] MEDS: InsuLIN REG 1unit/0.01ml Soln (100units/ml) SC SCH ×4 (06:24→21:23)
[2021-11-17] MEDS: traMADol HCL 50 MG TAB PO PRN ×3 (06:29→19:15)
[2021-11-17] MEDS: HYDROCORTISONE 10 MG TAB PO SCH ×2 (08:45→21:13)
[2021-11-17] MEDS: GABAPENTIN 300 MG CAP PO SCH ×2 (08:45→21:14)
[2021-11-17] MEDS: PANTOPRAZOLE 40 MG TAB PO SCH ×2 (08:46→21:15)
[2021-11-17 09:00] VITALS: BP 147/81
[2021-11-17 12:43] VITALS: BP 134/86
[2021-11-17 21:11] VITALS: BP 149/85
[2021-11-17] MEDS: ATORVASTATIN 20 MG TAB PO SCH (21:13)
[2021-11-17] MEDS: traZODone HCL 50 MG TAB PO SCH (21:14)
[2021-11-18] VITALS (9 sets, daily range): BP systolic 67–127; BP diastolic 39–82
[2021-11-18] MEDS: traMADol HCL 50 MG TAB PO PRN ×3 (00:30→21:55)
[2021-11-18] MEDS: MIDODRINE HCL 10 MG TAB PO SCH ×3 (03:30→18:15)
[2021-11-18] MEDS: DROXIDOPA 100 MG PO SCH ×3 (06:00→21:56)
[2021-11-18] MEDS: METOCLOPRAMIDE HCL 10 MG TAB PO SCH ×4 (06:01→21:56)
[2021-11-18] MEDS: LEVOTHYROXINE SODIUM 50 MCG TAB PO SCH (06:01)
[2021-11-18] MEDS: ACCU-CHEK COMFORT CURVE STRIP VI SCH ×4 (06:07→22:00)
[2021-11-18] MEDS: InsuLIN REG 1unit/0.01ml Soln (100units/ml) SC SCH ×4 (06:07→22:10)
[2021-11-18] MEDS: HYDROCORTISONE 10 MG TAB PO SCH ×2 (10:08→21:57)
[2021-11-18] MEDS: PANTOPRAZOLE 40 MG TAB PO SCH ×2 (10:09→21:54)
[2021-11-18] MEDS: GABAPENTIN 300 MG CAP PO SCH ×2 (10:09→21:54)
[2021-11-18] MEDS: ATORVASTATIN 20 MG TAB PO SCH (21:54)
[2021-11-18] MEDS: traZODone HCL 50 MG TAB PO SCH (21:54)
[2021-11-19] MEDS: MIDODRINE HCL 10 MG TAB PO SCH ×3 (03:11→18:32)
[2021-11-19] MEDS: DROXIDOPA 100 MG PO SCH ×3 (05:58→21:38)
[2021-11-19] MEDS: METOCLOPRAMIDE HCL 10 MG TAB PO SCH ×4 (05:59→21:41)
[2021-11-19] MEDS: traMADol HCL 50 MG TAB PO PRN ×3 (05:59→21:39)
[2021-11-19] MEDS: InsuLIN REG 1unit/0.01ml Soln (100units/ml) SC SCH ×4 (06:00→21:51)
[2021-11-19] MEDS: ACCU-CHEK COMFORT CURVE STRIP VI SCH ×4 (06:00→21:49)
[2021-11-19] MEDS: LEVOTHYROXINE SODIUM 50 MCG TAB PO SCH (06:37)
[2021-11-19 09:00] VITALS: BP 113/70
[2021-11-19] MEDS: HYDROCORTISONE 10 MG TAB PO SCH ×2 (09:26→21:38)
[2021-11-19] MEDS: PANTOPRAZOLE 40 MG TAB PO SCH ×2 (09:26→21:38)
[2021-11-19] MEDS: GABAPENTIN 300 MG CAP PO SCH ×2 (09:26→21:38)
[2021-11-19 13:00] VITALS: BP 118/80
[2021-11-19 17:00] VITALS: BP 154/87
[2021-11-19 21:16] VITALS: BP_SYST 136; BP_SYST 61; BP_SYST 89; BP_DIAS 38; BP_DIAS 58; BP_DIAS 80
[2021-11-19] MEDS: traZODone HCL 50 MG TAB PO SCH (21:38)
[2021-11-19] MEDS: ATORVASTATIN 20 MG TAB PO SCH (21:39)
[2021-11-20] MEDS: MIDODRINE HCL 10 MG TAB PO SCH ×3 (03:28→18:36)
[2021-11-20] MEDS: traMADol HCL 50 MG TAB PO PRN ×3 (04:44→14:11)
[2021-11-20 05:00] VITALS: BP_SYST 132; BP_SYST 76; BP_SYST 96; BP_DIAS 41; BP_DIAS 63; BP_DIAS 81
[2021-11-20] MEDS: DROXIDOPA 100 MG PO SCH ×3 (06:34→22:07)
[2021-11-20] MEDS: METOCLOPRAMIDE HCL 10 MG TAB PO SCH ×4 (06:34→22:02)
[2021-11-20] MEDS: ACCU-CHEK COMFORT CURVE STRIP VI SCH ×4 (06:35→22:06)
[2021-11-20] MEDS: InsuLIN REG 1unit/0.01ml Soln (100units/ml) SC SCH ×4 (06:35→22:05)
[2021-11-20] MEDS: LEVOTHYROXINE SODIUM 50 MCG TAB PO SCH (06:35)
[2021-11-20 08:30] VITALS: BP 128/81
[2021-11-20] MEDS: GABAPENTIN 300 MG CAP PO SCH ×2 (10:02→22:00)
[2021-11-20] MEDS: HYDROCORTISONE 10 MG TAB PO SCH (10:02)
[2021-11-20] MEDS: PANTOPRAZOLE 40 MG TAB PO SCH ×2 (10:03→22:09)
[2021-11-20 12:30] VITALS: BP 123/73
[2021-11-20] MEDS ORDERED: FLUDROCORTISONE ACETATE 0.1 MG TAB PO ONE (12:30)
[2021-11-20 16:30] VITALS: BP 110/67
[2021-11-20] MEDS: traZODone HCL 50 MG TAB PO SCH (21:58)
[2021-11-20] MEDS: ATORVASTATIN 20 MG TAB PO SCH (21:59)
[2021-11-20 22:00] VITALS: BP_SYST 117; BP_SYST 70; BP_SYST 77; BP_DIAS 41; BP_DIAS 42; BP_DIAS 77
[2021-11-20] MEDS: ACETAMINOPHEN 325 MG TAB PO PRN (22:08)
[2021-11-21] MEDS: MIDODRINE HCL 10 MG TAB PO SCH ×3 (03:29→18:44)
[2021-11-21 05:00] VITALS: BP 109/65
[2021-11-21] MEDS: DROXIDOPA 100 MG PO SCH ×3 (06:03→21:05)
[2021-11-21] MEDS: METOCLOPRAMIDE HCL 10 MG TAB PO SCH ×4 (06:04→21:09)
[2021-11-21] MEDS: LEVOTHYROXINE SODIUM 50 MCG TAB PO SCH (06:05)
[2021-11-21] MEDS: InsuLIN REG 1unit/0.01ml Soln (100units/ml) SC SCH ×4 (06:43→21:10)
[2021-11-21] MEDS: ACCU-CHEK COMFORT CURVE STRIP VI SCH ×4 (06:44→21:10)
[2021-11-21 06:54] LABS: Albumin 2.9 g/dL (3.4-5.0); BUN/Creatinine Ratio 23.7; Calcium 8.8 mg/dL (8.5-10.1); Potassium 3.7 mmol/L (3.5-5.1)
[2021-11-21 06:57] LABS: Bilirubin, Total 1.4 mg/dL (0.2-1.0)
[2021-11-21] MEDS: traMADol HCL 50 MG TAB PO PRN ×3 (07:31→21:07)
[2021-11-21 09:15] VITALS: BP 152/87
[2021-11-21] MEDS: FLUDROCORTISONE ACETATE 0.1 MG TAB PO SCH (09:42)
[2021-11-21] MEDS: PANTOPRAZOLE 40 MG TAB PO SCH ×2 (09:42→21:07)
[2021-11-21] MEDS: GABAPENTIN 300 MG CAP PO SCH ×2 (09:42→21:06)
[2021-11-21 10:01] LABS: Basophils # (auto) 0.1 10 ^3/uL (0-0.2); Basophils % (auto) 1.4 % (0.0-2.0); Eosinophils # (auto) 0.2 10 ^3/uL (0-0.8); Eosinophils % (auto) 2.8 % (0.0-7.0); Hematocrit 38.5 % (36.0-46.0); Hemoglobin 12.9 g/dL (12.2-16.2); Lymphocytes % (auto) 45.1 % (10.0-50.0); Mean Corpuscular Hemoglobin 29.3 pg (28.0-32.0); Mean Corpuscular Hgb Conc. 33.5 g/dL (32.0-36.0); Mean Corpuscular Volume 87.5 fL (80.0-100.0); Monocytes # (auto) 0.5 10 ^3/uL (0-1.3); Monocytes % (auto) 7.8 % (0.0-12.0); Neutrophils # (auto) 2.9 10 ^3/uL (1.6-8.6); Neutrophils % (auto) 42.9 % (37.0-80.0); Nucleated Red Blood Cells % 0.1 %; Red Cell Distribution Width 14.5 % (11.8-14.3); White Blood Cell 6.7 10^3/uL (4.4-10.8)
[2021-11-21 12:41] VITALS: BP 104/64
[2021-11-21] MEDS: ERGOCALCIFEROL 50,000 UNIT(1.25MG) CAP PO SCH (13:31)
[2021-11-21 16:30] VITALS: BP 125/77
[2021-11-21] MEDS: traZODone HCL 50 MG TAB PO SCH (21:05)
[2021-11-21] MEDS: ATORVASTATIN 20 MG TAB PO SCH (21:06)
[2021-11-21] MEDS: HYOSCYAMINE SULF 0.125 MG ODT TAB PO PRN (21:08)
[2021-11-21 22:00] VITALS: BP_SYST 138; BP_SYST 71; BP_SYST 86; BP_DIAS 43; BP_DIAS 50; BP_DIAS 85
[2021-11-22] MEDS: MIDODRINE HCL 10 MG TAB PO SCH ×3 (03:28→18:32)
[2021-11-22] MEDS: traMADol HCL 50 MG TAB PO PRN ×4 (04:03→22:29)
[2021-11-22 05:00] VITALS: BP_SYST 114; BP_SYST 67; BP_SYST 74; BP_DIAS 44; BP_DIAS 47; BP_DIAS 71
[2021-11-22] MEDS: DROXIDOPA 100 MG PO SCH ×3 (05:53→23:07)
[2021-11-22] MEDS: METOCLOPRAMIDE HCL 10 MG TAB PO SCH ×4 (05:53→22:30)
[2021-11-22] MEDS: LEVOTHYROXINE SODIUM 50 MCG TAB PO SCH (05:54)
[2021-11-22] MEDS: InsuLIN REG 1unit/0.01ml Soln (100units/ml) SC SCH ×4 (05:54→23:08)
[2021-11-22] MEDS: ACCU-CHEK COMFORT CURVE STRIP VI SCH ×4 (05:55→22:00)
[2021-11-22 09:00] VITALS: BP 120/75
[2021-11-22] MEDS: GABAPENTIN 300 MG CAP PO SCH ×2 (09:24→22:29)
[2021-11-22] MEDS: FLUDROCORTISONE ACETATE 0.1 MG TAB PO SCH ×2 (09:24→22:30)
[2021-11-22] MEDS: PANTOPRAZOLE 40 MG TAB PO SCH ×2 (09:25→22:29)
[2021-11-22 13:00] VITALS: BP 101/68
[2021-11-22 17:00] VITALS: BP 106/63
[2021-11-22 22:00] VITALS: BP 119/74
[2021-11-22] MEDS: traZODone HCL 50 MG TAB PO SCH (22:28)
[2021-11-22] MEDS: ATORVASTATIN 20 MG TAB PO SCH (22:29)
[2021-11-23] MEDS: MIDODRINE HCL 10 MG TAB PO SCH ×3 (03:44→20:03)
[2021-11-23] MEDS: traMADol HCL 50 MG TAB PO PRN ×5 (03:46→22:37)
[2021-11-23 05:00] VITALS: BP 117/72
[2021-11-23] MEDS: LEVOTHYROXINE SODIUM 50 MCG TAB PO SCH (06:00)
[2021-11-23] MEDS: METOCLOPRAMIDE HCL 10 MG TAB PO SCH ×4 (06:00→22:21)
[2021-11-23] MEDS: InsuLIN REG 1unit/0.01ml Soln (100units/ml) SC SCH ×4 (06:01→22:41)
[2021-11-23] MEDS: ACCU-CHEK COMFORT CURVE STRIP VI SCH ×4 (06:01→22:00)
[2021-11-23] MEDS: DROXIDOPA 100 MG PO SCH ×3 (06:01→22:22)
[2021-11-23 09:19] VITALS: BP 113/70
[2021-11-23] MEDS: FLUDROCORTISONE ACETATE 0.1 MG TAB PO SCH ×2 (10:11→22:21)
[2021-11-23] MEDS: GABAPENTIN 300 MG CAP PO SCH ×2 (10:11→22:20)
[2021-11-23] MEDS: PANTOPRAZOLE 40 MG TAB PO SCH ×2 (10:11→22:21)
[2021-11-23 13:00] VITALS: BP 117/77
[2021-11-23 17:15] VITALS: BP 143/82
[2021-11-23 22:02] VITALS: BP 140/77
[2021-11-23] MEDS: ATORVASTATIN 20 MG TAB PO SCH (22:20)
[2021-11-23] MEDS: traZODone HCL 50 MG TAB PO SCH (22:21)
[2021-11-24] MEDS: MIDODRINE HCL 10 MG TAB PO SCH ×3 (03:58→20:15)
[2021-11-24 04:28] VITALS: BP 129/72
[2021-11-24] MEDS: METOCLOPRAMIDE HCL 10 MG TAB PO SCH ×4 (06:24→22:01)
[2021-11-24] MEDS: DROXIDOPA 100 MG PO SCH ×3 (06:24→22:02)
[2021-11-24] MEDS: LEVOTHYROXINE SODIUM 50 MCG TAB PO SCH (06:25)
[2021-11-24] MEDS: traMADol HCL 50 MG TAB PO PRN ×4 (06:25→20:44)
[2021-11-24] MEDS: InsuLIN REG 1unit/0.01ml Soln (100units/ml) SC SCH ×4 (06:35→22:12)
[2021-11-24] MEDS: ACCU-CHEK COMFORT CURVE STRIP VI SCH ×4 (06:35→22:11)
[2021-11-24 09:00] VITALS: BP 101/71
[2021-11-24] MEDS: FLUDROCORTISONE ACETATE 0.1 MG TAB PO SCH ×2 (09:28→22:01)
[2021-11-24] MEDS: PANTOPRAZOLE 40 MG TAB PO SCH ×2 (09:28→22:01)
[2021-11-24] MEDS: GABAPENTIN 300 MG CAP PO SCH ×2 (09:28→22:01)
[2021-11-24 13:00] VITALS: BP 123/73
[2021-11-24 17:00] VITALS: BP 130/79
[2021-11-24 22:00] VITALS: BP 126/70
[2021-11-24] MEDS: traZODone HCL 50 MG TAB PO SCH (22:01)
[2021-11-24] MEDS: ATORVASTATIN 20 MG TAB PO SCH (22:01)
[2021-11-25] MEDS: traMADol HCL 50 MG TAB PO PRN ×3 (02:26→18:53)
[2021-11-25] MEDS: MIDODRINE HCL 10 MG TAB PO SCH ×3 (03:45→18:53)
[2021-11-25 05:00] VITALS: BP 135/80
[2021-11-25] MEDS: InsuLIN REG 1unit/0.01ml Soln (100units/ml) SC SCH ×4 (07:00→21:35)
[2021-11-25] MEDS: ACCU-CHEK COMFORT CURVE STRIP VI SCH ×4 (07:00→21:34)
[2021-11-25] MEDS: DROXIDOPA 100 MG PO SCH ×3 (07:13→21:38)
[2021-11-25] MEDS: METOCLOPRAMIDE HCL 10 MG TAB PO SCH ×4 (07:13→21:34)
[2021-11-25] MEDS: LEVOTHYROXINE SODIUM 50 MCG TAB PO SCH (07:13)
[2021-11-25 08:56] VITALS: BP 158/87
[2021-11-25] MEDS: GABAPENTIN 300 MG CAP PO SCH ×2 (09:31→21:33)
[2021-11-25] MEDS: FLUDROCORTISONE ACETATE 0.1 MG TAB PO SCH ×2 (09:31→21:32)
[2021-11-25] MEDS: PANTOPRAZOLE 40 MG TAB PO SCH ×2 (09:31→21:33)
[2021-11-25 11:13] LABS: Basophils # (auto) 0.1 10 ^3/uL (0-0.2); Basophils % (auto) 1.4 % (0.0-2.0); Eosinophils # (auto) 0.2 10 ^3/uL (0-0.8); Eosinophils % (auto) 2.8 % (0.0-7.0); Hematocrit 34.9 % (36.0-46.0); Hemoglobin 12.2 g/dL (12.2-16.2); Lymphocytes # (auto) 1.9 10 ^3/uL (0.4-5.4); Lymphocytes % (auto) 33.4 % (10.0-50.0); Mean Corpuscular Hemoglobin 30.4 pg (28.0-32.0); Mean Corpuscular Hgb Conc. 34.9 g/dL (32.0-36.0); Mean Corpuscular Volume 87.2 fL (80.0-100.0); Monocytes # (auto) 0.5 10 ^3/uL (0-1.3); Neutrophils # (auto) 3.1 10 ^3/uL (1.6-8.6); Neutrophils % (auto) 54.4 % (37.0-80.0); Nucleated Red Blood Cells % 0.2 %; Red Cell Distribution Width 14.3 % (11.8-14.3); White Blood Cell 5.8 10^3/uL (4.4-10.8)
[2021-11-25 11:32] LABS: Albumin 2.8 g/dL (3.4-5.0); Calcium 8.7 mg/dL (8.5-10.1); Potassium 3.8 mmol/L (3.5-5.1)
[2021-11-25 11:36] LABS: BUN/Creatinine Ratio 18.4; Bilirubin, Total 1.5 mg/dL (0.2-1.0); Total Protein 5.9 g/dL (6.4-8.2)
[2021-11-25 13:21] VITALS: BP 127/81
[2021-11-25 17:00] VITALS: BP 98/65
[2021-11-25 20:00] VITALS: BP 128/76
[2021-11-25] MEDS: traZODone HCL 50 MG TAB PO SCH (21:32)
[2021-11-25] MEDS: ATORVASTATIN 20 MG TAB PO SCH (21:33)
[2021-11-25 22:00] VITALS: BP 128/76
[2021-11-26] MEDS: traMADol HCL 50 MG TAB PO PRN ×4 (01:15→20:03)
[2021-11-26] MEDS: MIDODRINE HCL 10 MG TAB PO SCH ×3 (03:39→19:58)
[2021-11-26 05:00] VITALS: BP 134/80
[2021-11-26] MEDS: ACCU-CHEK COMFORT CURVE STRIP VI SCH ×4 (05:48→22:14)
[2021-11-26] MEDS: InsuLIN REG 1unit/0.01ml Soln (100units/ml) SC SCH ×4 (05:49→22:15)
[2021-11-26] MEDS: METOCLOPRAMIDE HCL 10 MG TAB PO SCH ×4 (06:10→22:12)
[2021-11-26] MEDS: LEVOTHYROXINE SODIUM 50 MCG TAB PO SCH (06:10)
[2021-11-26] MEDS: DROXIDOPA 100 MG PO SCH ×3 (06:11→22:09)
[2021-11-26 08:51] VITALS: BP 110/65
[2021-11-26] MEDS: FLUDROCORTISONE ACETATE 0.1 MG TAB PO SCH ×2 (09:21→22:11)
[2021-11-26] MEDS: GABAPENTIN 300 MG CAP PO SCH ×2 (09:21→22:09)
[2021-11-26] MEDS: PANTOPRAZOLE 40 MG TAB PO SCH ×2 (09:22→22:14)
[2021-11-26 13:04] VITALS: BP 109/67
[2021-11-26 16:35] VITALS: BP 114/69
[2021-11-26 22:00] VITALS: BP 145/82
[2021-11-26] MEDS: ATORVASTATIN 20 MG TAB PO SCH (22:10)
[2021-11-26] MEDS: traZODone HCL 50 MG TAB PO SCH (22:12)
[2021-11-27] MEDS: traMADol HCL 50 MG TAB PO PRN ×4 (03:13→21:18)
[2021-11-27] MEDS: MIDODRINE HCL 10 MG TAB PO SCH ×3 (03:14→19:57)
[2021-11-27 05:00] VITALS: BP 126/74
[2021-11-27] MEDS: DROXIDOPA 100 MG PO SCH ×3 (05:39→21:03)
[2021-11-27] MEDS: METOCLOPRAMIDE HCL 10 MG TAB PO SCH ×4 (06:32→21:04)
[2021-11-27] MEDS: LEVOTHYROXINE SODIUM 50 MCG TAB PO SCH (06:32)
[2021-11-27] MEDS: InsuLIN REG 1unit/0.01ml Soln (100units/ml) SC SCH ×4 (06:36→21:20)
[2021-11-27] MEDS: ACCU-CHEK COMFORT CURVE STRIP VI SCH ×4 (06:36→21:19)
[2021-11-27 08:00] VITALS: BP 111/68
[2021-11-27 09:00] VITALS: BP 111/68
[2021-11-27] MEDS: GABAPENTIN 300 MG CAP PO SCH ×2 (09:42→21:03)
[2021-11-27] MEDS: PANTOPRAZOLE 40 MG TAB PO SCH ×2 (09:43→21:03)
[2021-11-27] MEDS: FLUDROCORTISONE ACETATE 0.1 MG TAB PO SCH ×2 (09:43→21:04)
[2021-11-27 12:59] LABS: Basophils # (auto) 0.1 10 ^3/uL (0-0.2); Basophils % (auto) 0.7 % (0.0-2.0); Eosinophils # (auto) 0.1 10 ^3/uL (0-0.8); Eosinophils % (auto) 1.4 % (0.0-7.0); Hematocrit 36.4 % (36.0-46.0); Hemoglobin 12.5 g/dL (12.2-16.2); Lymphocytes # (auto) 1.5 10 ^3/uL (0.4-5.4); Lymphocytes % (auto) 15.2 % (10.0-50.0); Mean Corpuscular Hemoglobin 30.2 pg (28.0-32.0); Mean Corpuscular Hgb Conc. 34.3 g/dL (32.0-36.0); Mean Corpuscular Volume 87.8 fL (80.0-100.0); Monocytes # (auto) 0.7 10 ^3/uL (0-1.3); Neutrophils # (auto) 7.3 10 ^3/uL (1.6-8.6); Neutrophils % (auto) 75.7 % (37.0-80.0); Red Blood Cells 4.14 10^6/uL (4.0-5.20); Red Cell Distribution Width 14.5 % (11.8-14.3); White Blood Cell 9.7 10^3/uL (4.4-10.8)
[2021-11-27 13:17] LABS: Calcium 8.7 mg/dL (8.5-10.1); Potassium 3.5 mmol/L (3.5-5.1)
[2021-11-27 13:20] LABS: BUN/Creatinine Ratio 15.7; Bilirubin, Total 1.6 mg/dL (0.2-1.0); Total Protein 6.3 g/dL (6.4-8.2)
[2021-11-27 17:00] VITALS: BP 149/79
[2021-11-27 18:16] VITALS: BP 121/71
[2021-11-27] MEDS: ATORVASTATIN 20 MG TAB PO SCH (21:04)
[2021-11-27] MEDS: traZODone HCL 50 MG TAB PO SCH (21:18)
[2021-11-27 22:00] VITALS: BP 127/72
[2021-11-28] MEDS: traMADol HCL 50 MG TAB PO PRN ×4 (02:00→23:15)
[2021-11-28] MEDS: MIDODRINE HCL 10 MG TAB PO SCH ×3 (03:02→19:56)
[2021-11-28 05:00] VITALS: BP 122/76
[2021-11-28] MEDS: DROXIDOPA 100 MG PO SCH (06:05)
[2021-11-28] MEDS: METOCLOPRAMIDE HCL 10 MG TAB PO SCH ×2 (06:05→11:08)
[2021-11-28] MEDS: LEVOTHYROXINE SODIUM 50 MCG TAB PO SCH (06:06)
[2021-11-28] MEDS: ACCU-CHEK COMFORT CURVE STRIP VI SCH ×4 (06:06→23:14)
[2021-11-28] MEDS: InsuLIN REG 1unit/0.01ml Soln (100units/ml) SC SCH ×4 (06:06→23:29)
[2021-11-28 07:11] LABS: Basophils # (auto) 0 10 ^3/uL (0-0.2); Basophils % (auto) 0.5 % (0.0-2.0); Eosinophils # (auto) 0.2 10 ^3/uL (0-0.8); Eosinophils % (auto) 2.4 % (0.0-7.0); Hematocrit 33.1 % (36.0-46.0); Hemoglobin 11.7 g/dL (12.2-16.2); Lymphocytes # (auto) 1.7 10 ^3/uL (0.4-5.4); Lymphocytes % (auto) 25.5 % (10.0-50.0); Mean Corpuscular Hemoglobin 30.5 pg (28.0-32.0); Mean Corpuscular Hgb Conc. 35.2 g/dL (32.0-36.0); Mean Corpuscular Volume 86.6 fL (80.0-100.0); Monocytes # (auto) 0.6 10 ^3/uL (0-1.3); Monocytes % (auto) 9.1 % (0.0-12.0); Neutrophils # (auto) 4.3 10 ^3/uL (1.6-8.6); Neutrophils % (auto) 62.5 % (37.0-80.0); Red Blood Cells 3.83 10^6/uL (4.0-5.20); Red Cell Distribution Width 14.3 % (11.8-14.3); White Blood Cell 6.8 10^3/uL (4.4-10.8)
[2021-11-28 07:18] LABS: Calcium 8.9 mg/dL (8.5-10.1); Potassium 3.5 mmol/L (3.5-5.1)
[2021-11-28 07:21] LABS: BUN/Creatinine Ratio 19.4
[2021-11-28 08:00] VITALS: BP 111/68
[2021-11-28 09:06] VITALS: BP 108/69
[2021-11-28] MEDS: PANTOPRAZOLE 40 MG TAB PO SCH ×2 (10:04→23:14)
[2021-11-28] MEDS: FLUDROCORTISONE ACETATE 0.1 MG TAB PO SCH (10:05)
[2021-11-28] MEDS: GABAPENTIN 300 MG CAP PO SCH ×2 (10:05→23:13)
[2021-11-28 13:00] VITALS: BP 113/65
[2021-11-28] MEDS ORDERED: PYRIDOSTIGMINE BROMIDE 60 MG TAB PO ONE (13:15)
[2021-11-28] MEDS: ERGOCALCIFEROL 50,000 UNIT(1.25MG) CAP PO SCH (14:55)
[2021-11-28 17:12] VITALS: BP 115/64
[2021-11-28] MEDS: PYRIDOSTIGMINE BROMIDE 60 MG TAB PO SCH ×2 (19:57→23:14)
[2021-11-28 22:00] VITALS: BP 123/66
[2021-11-28] MEDS: traZODone HCL 50 MG TAB PO SCH (23:13)
[2021-11-28] MEDS: ATORVASTATIN 20 MG TAB PO SCH (23:13)
[2021-11-29] MEDS: MIDODRINE HCL 10 MG TAB PO SCH ×3 (03:26→18:14)
[2021-11-29 05:00] VITALS: BP 110/63
[2021-11-29] MEDS: PYRIDOSTIGMINE BROMIDE 60 MG TAB PO SCH ×4 (06:34→22:17)
[2021-11-29] MEDS: LEVOTHYROXINE SODIUM 50 MCG TAB PO SCH (06:34)
[2021-11-29] MEDS: ACCU-CHEK COMFORT CURVE STRIP VI SCH ×5 (06:34→22:17)
[2021-11-29] MEDS: InsuLIN REG 1unit/0.01ml Soln (100units/ml) SC SCH ×4 (06:41→22:16)
[2021-11-29 08:51] VITALS: BP 106/59
[2021-11-29] MEDS: traMADol HCL 50 MG TAB PO PRN ×3 (09:06→22:18)
[2021-11-29] MEDS: FLUDROCORTISONE ACETATE 0.1 MG TAB PO SCH (09:06)
[2021-11-29] MEDS: PANTOPRAZOLE 40 MG TAB PO SCH ×2 (09:06→22:15)
[2021-11-29] MEDS: GABAPENTIN 300 MG CAP PO SCH ×2 (09:06→22:15)
[2021-11-29 12:57] VITALS: BP 114/62
[2021-11-29 16:58] VITALS: BP 105/59
[2021-11-29 20:00] VITALS: BP 139/80
[2021-11-29 22:00] VITALS: BP 138/75
[2021-11-29] MEDS: traZODone HCL 50 MG TAB PO SCH (22:14)
[2021-11-29] MEDS: ATORVASTATIN 20 MG TAB PO SCH (22:15)
[2021-11-30 01:00] VITALS: BP_SYST 152; BP_SYST 84; BP_SYST 94; BP_DIAS 49; BP_DIAS 62; BP_DIAS 71
[2021-11-30] MEDS: MIDODRINE HCL 10 MG TAB PO SCH ×3 (03:29→18:03)
[2021-11-30 05:01] VITALS: BP 125/71
[2021-11-30] MEDS: InsuLIN REG 1unit/0.01ml Soln (100units/ml) SC SCH ×4 (05:08→21:26)
[2021-11-30] MEDS: ACCU-CHEK COMFORT CURVE STRIP VI SCH ×4 (05:09→21:22)
[2021-11-30] MEDS: PYRIDOSTIGMINE BROMIDE 60 MG TAB PO SCH ×4 (05:26→23:45)
[2021-11-30] MEDS: LEVOTHYROXINE SODIUM 50 MCG TAB PO SCH (05:26)
[2021-11-30] MEDS: traMADol HCL 50 MG TAB PO PRN ×4 (05:27→21:28)
[2021-11-30 09:00] VITALS: BP 82/42
[2021-11-30] MEDS: PANTOPRAZOLE 40 MG TAB PO SCH ×2 (09:32→21:22)
[2021-11-30] MEDS: GABAPENTIN 300 MG CAP PO SCH ×2 (09:32→21:22)
[2021-11-30] MEDS: FLUDROCORTISONE ACETATE 0.1 MG TAB PO SCH (09:32)
[2021-11-30 17:00] VITALS: BP 113/62
[2021-11-30] MEDS: Ensure HIGH Protein Chocolate 8oz Bottle PO SCH (18:02)
[2021-11-30] MEDS: ATORVASTATIN 20 MG TAB PO SCH (21:22)
[2021-11-30] MEDS: traZODone HCL 50 MG TAB PO SCH (21:22)
[2021-11-30 22:00] VITALS: BP 141/75
[2021-12-01] MEDS: MIDODRINE HCL 10 MG TAB PO SCH ×3 (03:12→20:07)
[2021-12-01] MEDS: traMADol HCL 50 MG TAB PO PRN ×4 (03:36→22:30)
[2021-12-01 05:00] VITALS: BP 120/74
[2021-12-01] MEDS: LEVOTHYROXINE SODIUM 50 MCG TAB PO SCH (05:26)
[2021-12-01] MEDS: ACCU-CHEK COMFORT CURVE STRIP VI SCH ×4 (05:26→22:00)
[2021-12-01] MEDS: PYRIDOSTIGMINE BROMIDE 60 MG TAB PO SCH ×3 (05:26→19:15)
[2021-12-01] MEDS: InsuLIN REG 1unit/0.01ml Soln (100units/ml) SC SCH ×4 (05:26→22:40)
[2021-12-01 06:37] LABS: Albumin 2.9 g/dL (3.4-5.0); BUN/Creatinine Ratio 18.5; Basophils # (auto) 0 10 ^3/uL (0-0.2); Basophils % (auto) 1.1 % (0.0-2.0); Calcium 9.2 mg/dL (8.5-10.1); Eosinophils # (auto) 0.2 10 ^3/uL (0-0.8); Eosinophils % (auto) 4.9 % (0.0-7.0); Hemoglobin 11.7 g/dL (12.2-16.2); Lymphocytes # (auto) 1.7 10 ^3/uL (0.4-5.4); Lymphocytes % (auto) 39.1 % (10.0-50.0); Mean Corpuscular Hemoglobin 30.6 pg (28.0-32.0); Mean Corpuscular Hgb Conc. 35.4 g/dL (32.0-36.0); Mean Corpuscular Volume 86.4 fL (80.0-100.0); Monocytes # (auto) 0.4 10 ^3/uL (0-1.3); Monocytes % (auto) 9.1 % (0.0-12.0); Neutrophils % (auto) 45.8 % (37.0-80.0); Nucleated Red Blood Cells % 0.1 %; Potassium 3.6 mmol/L (3.5-5.1); Red Blood Cells 3.82 10^6/uL (4.0-5.20); Red Cell Distribution Width 14.2 % (11.8-14.3); White Blood Cell 4.5 10^3/uL (4.4-10.8)
[2021-12-01 06:39] LABS: Bilirubin, Total 1.6 mg/dL (0.2-1.0); Total Protein 6.2 g/dL (6.4-8.2)
[2021-12-01] MEDS: Ensure HIGH Protein Chocolate 8oz Bottle PO SCH ×3 (07:42→19:09)
[2021-12-01 09:00] VITALS: BP 112/63
[2021-12-01] MEDS: FLUDROCORTISONE ACETATE 0.1 MG TAB PO SCH (10:20)
[2021-12-01] MEDS: PANTOPRAZOLE 40 MG TAB PO SCH ×2 (10:22→22:30)
[2021-12-01] MEDS: GABAPENTIN 300 MG CAP PO SCH ×2 (10:22→22:29)
[2021-12-01 13:00] VITALS: BP 116/71
[2021-12-01 17:00] VITALS: BP 126/76
[2021-12-01 22:00] VITALS: BP 105/61
[2021-12-01] MEDS: traZODone HCL 50 MG TAB PO SCH (22:29)
[2021-12-01] MEDS: ATORVASTATIN 20 MG TAB PO SCH (22:29)
[2021-12-02] MEDS: PYRIDOSTIGMINE BROMIDE 60 MG TAB PO SCH ×5 (00:37→23:29)
[2021-12-02] MEDS: MIDODRINE HCL 10 MG TAB PO SCH ×3 (03:43→20:18)
[2021-12-02] MEDS: traMADol HCL 50 MG TAB PO PRN ×2 (05:52→21:36)
[2021-12-02] MEDS: LEVOTHYROXINE SODIUM 50 MCG TAB PO SCH (05:53)
[2021-12-02] MEDS: InsuLIN REG 1unit/0.01ml Soln (100units/ml) SC SCH ×4 (05:57→21:41)
[2021-12-02] MEDS: ACCU-CHEK COMFORT CURVE STRIP VI SCH ×4 (05:57→21:37)
[2021-12-02] MEDS: Ensure HIGH Protein Chocolate 8oz Bottle PO SCH ×3 (07:44→17:33)
[2021-12-02 09:02] VITALS: BP 114/65
[2021-12-02] MEDS: GABAPENTIN 300 MG CAP PO SCH ×2 (10:37→21:16)
[2021-12-02] MEDS: FLUDROCORTISONE ACETATE 0.1 MG TAB PO SCH (10:37)
[2021-12-02] MEDS: PANTOPRAZOLE 40 MG TAB PO SCH ×2 (10:38→21:17)
[2021-12-02 12:33] VITALS: BP 106/73
[2021-12-02 16:47] VITALS: BP 131/75
[2021-12-02] MEDS: ATORVASTATIN 20 MG TAB PO SCH (21:16)
[2021-12-02] MEDS: traZODone HCL 50 MG TAB PO SCH (21:16)
[2021-12-02 22:00] VITALS: BP 130/65
[2021-12-03] MEDS: MIDODRINE HCL 10 MG TAB PO SCH ×3 (03:28→18:27)
[2021-12-03 05:00] VITALS: BP 134/74
[2021-12-03] MEDS: PYRIDOSTIGMINE BROMIDE 60 MG TAB PO SCH ×3 (05:49→18:24)
[2021-12-03] MEDS: InsuLIN REG 1unit/0.01ml Soln (100units/ml) SC SCH ×4 (05:50→21:46)
[2021-12-03] MEDS: LEVOTHYROXINE SODIUM 50 MCG TAB PO SCH (05:50)
[2021-12-03] MEDS: ACCU-CHEK COMFORT CURVE STRIP VI SCH ×4 (05:50→22:41)
[2021-12-03] MEDS: Ensure HIGH Protein Chocolate 8oz Bottle PO SCH ×3 (07:34→18:23)
[2021-12-03 09:00] VITALS: BP 102/60
[2021-12-03] MEDS: PANTOPRAZOLE 40 MG TAB PO SCH ×2 (10:00→21:31)
[2021-12-03] MEDS: GABAPENTIN 300 MG CAP PO SCH ×2 (10:00→21:31)
[2021-12-03] MEDS: FLUDROCORTISONE ACETATE 0.1 MG TAB PO SCH (10:00)
[2021-12-03] MEDS: traMADol HCL 50 MG TAB PO PRN ×3 (11:25→22:40)
[2021-12-03 13:00] VITALS: BP 117/68
[2021-12-03 17:00] VITALS: BP 159/81
[2021-12-03] MEDS: ATORVASTATIN 20 MG TAB PO SCH (21:30)
[2021-12-03] MEDS: traZODone HCL 50 MG TAB PO SCH (21:31)
[2021-12-03 21:43] VITALS: BP 131/71
[2021-12-04] MEDS: PYRIDOSTIGMINE BROMIDE 60 MG TAB PO SCH ×3 (00:55→21:59)
[2021-12-04] MEDS: MIDODRINE HCL 10 MG TAB PO SCH ×3 (03:30→19:49)
[2021-12-04 05:00] VITALS: BP 118/73
[2021-12-04] MEDS: LEVOTHYROXINE SODIUM 50 MCG TAB PO SCH (05:48)
[2021-12-04] MEDS: InsuLIN REG 1unit/0.01ml Soln (100units/ml) SC SCH ×5 (05:48→21:58)
[2021-12-04] MEDS: ACCU-CHEK COMFORT CURVE STRIP VI SCH ×4 (05:49→21:54)
[2021-12-04] MEDS: traMADol HCL 50 MG TAB PO PRN ×3 (05:50→21:55)
[2021-12-04 08:00] VITALS: BP 99/58
[2021-12-04] MEDS: Ensure HIGH Protein Chocolate 8oz Bottle PO SCH ×3 (08:00→17:46)
[2021-12-04] MEDS: PANTOPRAZOLE 40 MG TAB PO SCH ×2 (10:05→21:58)
[2021-12-04] MEDS: ACETAMINOPHEN 325 MG TAB PO PRN (10:05)
[2021-12-04] MEDS: GABAPENTIN 300 MG CAP PO SCH ×2 (10:05→21:54)
[2021-12-04] MEDS: FLUDROCORTISONE ACETATE 0.1 MG TAB PO SCH (10:05)
[2021-12-04] MEDS ORDERED: KETOROLAC TROMETH 30 MG/ML 1ML VIAL IV ONE (12:00)
[2021-12-04 13:31] VITALS: BP 11/67
[2021-12-04 17:00] VITALS: BP 98/64
[2021-12-04] MEDS: traZODone HCL 50 MG TAB PO SCH (21:54)
[2021-12-04] MEDS: ATORVASTATIN 20 MG TAB PO SCH (21:55)
[2021-12-04] MEDS: INSULIN LANTUS (GLARGINE) 1 /0.01ml (100units/ml) SC SCH (21:57)
[2021-12-04 22:00] VITALS: BP 127/73
[2021-12-05] MEDS: MIDODRINE HCL 10 MG TAB PO SCH ×3 (03:08→20:07)
[2021-12-05] MEDS: traMADol HCL 50 MG TAB PO PRN ×3 (03:15→20:07)
[2021-12-05 05:00] VITALS: BP 132/77
[2021-12-05 05:37] LABS: Basophils # (auto) 0 10 ^3/uL (0-0.2); Basophils % (auto) 0.9 % (0.0-2.0); Eosinophils # (auto) 0.2 10 ^3/uL (0-0.8); Eosinophils % (auto) 3.7 % (0.0-7.0); Hematocrit 34.2 % (36.0-46.0); Hemoglobin 12.1 g/dL (12.2-16.2); Lymphocytes % (auto) 39.8 % (10.0-50.0); Mean Corpuscular Hemoglobin 30.5 pg (28.0-32.0); Mean Corpuscular Hgb Conc. 35.5 g/dL (32.0-36.0); Monocytes # (auto) 0.5 10 ^3/uL (0-1.3); Neutrophils # (auto) 2.4 10 ^3/uL (1.6-8.6); Neutrophils % (auto) 46.6 % (37.0-80.0); Nucleated Red Blood Cells % 0.1 %; Red Blood Cells 3.97 10^6/uL (4.0-5.20); Red Cell Distribution Width 13.9 % (11.8-14.3); White Blood Cell 5.1 10^3/uL (4.4-10.8)
[2021-12-05 05:56] LABS: Potassium 3.9 mmol/L (3.5-5.1)
[2021-12-05 06:04] LABS: Albumin 3.2 g/dL (3.4-5.0); BUN/Creatinine Ratio 32.8; Bilirubin, Total 1.3 mg/dL (0.2-1.0); Calcium 9.5 mg/dL (8.5-10.1); Total Protein 6.1 g/dL (6.4-8.2)
[2021-12-05] MEDS: InsuLIN REG 1unit/0.01ml Soln (100units/ml) SC SCH ×4 (06:12→22:14)
[2021-12-05] MEDS: ACCU-CHEK COMFORT CURVE STRIP VI SCH ×4 (06:12→22:12)
[2021-12-05] MEDS: LEVOTHYROXINE SODIUM 50 MCG TAB PO SCH (06:12)
[2021-12-05] MEDS: Ensure HIGH Protein Chocolate 8oz Bottle PO SCH ×3 (08:00→18:05)
[2021-12-05 09:00] VITALS: BP 104/61
[2021-12-05] MEDS: FLUDROCORTISONE ACETATE 0.1 MG TAB PO SCH (10:07)
[2021-12-05] MEDS: GABAPENTIN 300 MG CAP PO SCH ×2 (10:07→22:12)
[2021-12-05] MEDS: PANTOPRAZOLE 40 MG TAB PO SCH ×2 (10:07→22:12)
[2021-12-05] MEDS: PYRIDOSTIGMINE BROMIDE 60 MG TAB PO SCH ×2 (10:08→22:12)
[2021-12-05 13:00] VITALS: BP 102/54
[2021-12-05] MEDS ORDERED: KETOROLAC TROMETH 30 MG/ML 1ML VIAL IV ONE (13:00)
[2021-12-05] MEDS ORDERED: LORazepam 2MG/ML-1ML VIAL IV ONE (13:00)
[2021-12-05] MEDS: ERGOCALCIFEROL 50,000 UNIT(1.25MG) CAP PO SCH (13:52)
[2021-12-05 17:39] VITALS: BP 137/72
[2021-12-05 22:00] VITALS: BP 150/76
[2021-12-05] MEDS: traZODone HCL 50 MG TAB PO SCH (22:11)
[2021-12-05] MEDS: ATORVASTATIN 20 MG TAB PO SCH (22:11)
[2021-12-05] MEDS: INSULIN LANTUS (GLARGINE) 1 /0.01ml (100units/ml) SC SCH (22:13)
[2021-12-06] MEDS: traMADol HCL 50 MG TAB PO PRN ×3 (03:29→18:23)
[2021-12-06] MEDS: MIDODRINE HCL 10 MG TAB PO SCH ×3 (03:30→19:58)
[2021-12-06 05:00] VITALS: BP 130/72
[2021-12-06] MEDS: InsuLIN REG 1unit/0.01ml Soln (100units/ml) SC SCH ×4 (08:00→22:14)
[2021-12-06] MEDS: ACCU-CHEK COMFORT CURVE STRIP VI SCH ×4 (08:00→22:09)
[2021-12-06] MEDS: Ensure HIGH Protein Chocolate 8oz Bottle PO SCH ×3 (08:54→18:24)
[2021-12-06 09:00] VITALS: BP 101/65
[2021-12-06] MEDS: LEVOTHYROXINE SODIUM 50 MCG TAB PO SCH (09:04)
[2021-12-06] MEDS: PYRIDOSTIGMINE BROMIDE 60 MG TAB PO SCH ×2 (09:40→21:27)
[2021-12-06] MEDS: PANTOPRAZOLE 40 MG TAB PO SCH ×2 (09:40→21:27)
[2021-12-06] MEDS: FLUDROCORTISONE ACETATE 0.1 MG TAB PO SCH (09:41)
[2021-12-06] MEDS: GABAPENTIN 300 MG CAP PO SCH ×2 (09:41→21:27)
[2021-12-06] MEDS: SODIUM CHLORIDE 0.9% 1,000 ML IV SCH (15:15)
[2021-12-06] MEDS ORDERED: IOHEXOL 350 MG/ML 100ML IJ ONE (16:55)
[2021-12-06 17:00] VITALS: BP 86/60
[2021-12-06] MEDS: traZODone HCL 50 MG TAB PO SCH (21:26)
[2021-12-06] MEDS: ATORVASTATIN 20 MG TAB PO SCH (21:27)
[2021-12-06 22:00] VITALS: BP 119/67
[2021-12-06] MEDS: INSULIN LANTUS (GLARGINE) 1 /0.01ml (100units/ml) SC SCH (22:18)
[2021-12-07] MEDS: MIDODRINE HCL 10 MG TAB PO SCH ×3 (03:28→19:50)
[2021-12-07 05:00] VITALS: BP 125/71
[2021-12-07 05:28] LABS: BUN/Creatinine Ratio 27.6; Calcium 9.2 mg/dL (8.5-10.1); Potassium 4.4 mmol/L (3.5-5.1)
[2021-12-07] MEDS: LEVOTHYROXINE SODIUM 50 MCG TAB PO SCH (06:34)
[2021-12-07] MEDS: SODIUM CHLORIDE 0.9% 1,000 ML IV SCH ×2 (06:34→17:41)
[2021-12-07] MEDS: InsuLIN REG 1unit/0.01ml Soln (100units/ml) SC SCH ×4 (06:35→22:05)
[2021-12-07] MEDS: ACCU-CHEK COMFORT CURVE STRIP VI SCH ×4 (06:35→22:02)
[2021-12-07] MEDS: Ensure HIGH Protein Chocolate 8oz Bottle PO SCH ×3 (08:22→17:42)
[2021-12-07 09:00] VITALS: BP 117/62
[2021-12-07] MEDS: GABAPENTIN 300 MG CAP PO SCH ×2 (09:09→22:02)
[2021-12-07] MEDS: FLUDROCORTISONE ACETATE 0.1 MG TAB PO SCH (09:09)
[2021-12-07] MEDS: PYRIDOSTIGMINE BROMIDE 60 MG TAB PO SCH (09:11)
[2021-12-07] MEDS: traMADol HCL 50 MG TAB PO PRN (10:56)
[2021-12-07 13:08] VITALS: BP 129/75
[2021-12-07] MEDS ORDERED: MORPHINE SULFATE INJ 2 MG/ml SYRG IV ONE (15:00)
[2021-12-07 16:38] VITALS: BP 130/73
[2021-12-07 21:59] VITALS: BP 167/82
[2021-12-07] MEDS: traZODone HCL 50 MG TAB PO SCH (22:01)
[2021-12-07] MEDS: ATORVASTATIN 20 MG TAB PO SCH (22:01)
[2021-12-07] MEDS: INSULIN LANTUS (GLARGINE) 1 /0.01ml (100units/ml) SC SCH (22:03)
[2021-12-08] MEDS: MIDODRINE HCL 10 MG TAB PO SCH ×3 (03:53→19:44)
[2021-12-08 05:31] VITALS: BP 106/65
[2021-12-08 05:55] LABS: Potassium 3.7 mmol/L (3.5-5.1)
[2021-12-08 05:58] LABS: BUN/Creatinine Ratio 21.5; Calcium 9.3 mg/dL (8.5-10.1)
[2021-12-08] MEDS: InsuLIN REG 1unit/0.01ml Soln (100units/ml) SC SCH ×4 (07:00→22:03)
[2021-12-08] MEDS: ACCU-CHEK COMFORT CURVE STRIP VI SCH ×4 (07:00→21:58)
[2021-12-08] MEDS: LEVOTHYROXINE SODIUM 50 MCG TAB PO SCH (07:00)
[2021-12-08] MEDS: SODIUM CHLORIDE 0.9% 1,000 ML IV SCH ×2 (07:15→21:57)
[2021-12-08 09:00] VITALS: BP 102/59
[2021-12-08] MEDS: FLUDROCORTISONE ACETATE 0.1 MG TAB PO SCH (10:35)
[2021-12-08] MEDS: GABAPENTIN 300 MG CAP PO SCH ×2 (10:36→21:57)
[2021-12-08] MEDS: traMADol HCL 50 MG TAB PO PRN ×3 (10:36→22:05)
[2021-12-08] MEDS: Ensure HIGH Protein Chocolate 8oz Bottle PO SCH ×3 (10:43→18:00)
[2021-12-08 12:30] VITALS: BP 115/70
[2021-12-08] MEDS ORDERED: IOHEXOL 350 MG/ML 100ML IJ ONE (17:07)
[2021-12-08] MEDS: traZODone HCL 50 MG TAB PO SCH (21:57)
[2021-12-08] MEDS: ATORVASTATIN 20 MG TAB PO SCH (21:57)
[2021-12-08 22:00] VITALS: BP 111/72
[2021-12-08] MEDS: INSULIN LANTUS (GLARGINE) 1 /0.01ml (100units/ml) SC SCH (22:02)
[2021-12-09] MEDS: MIDODRINE HCL 10 MG TAB PO SCH ×3 (03:29→20:14)
[2021-12-09 05:14] VITALS: BP 110/66
[2021-12-09] MEDS: LEVOTHYROXINE SODIUM 50 MCG TAB PO SCH (06:35)
[2021-12-09] MEDS: InsuLIN REG 1unit/0.01ml Soln (100units/ml) SC SCH ×3 (06:36→22:10)
[2021-12-09] MEDS: ACCU-CHEK COMFORT CURVE STRIP VI SCH ×4 (06:36→22:00)
[2021-12-09 08:00] VITALS: BP 98/71
[2021-12-09] MEDS: SODIUM CHLORIDE 0.9% 1,000 ML IV SCH ×2 (11:23→23:15)
[2021-12-09] MEDS: GABAPENTIN 300 MG CAP PO SCH ×2 (11:23→22:07)
[2021-12-09] MEDS: FLUDROCORTISONE ACETATE 0.1 MG TAB PO SCH (11:23)
[2021-12-09 12:00] VITALS: BP 147/86
[2021-12-09] MEDS ORDERED: HYDROcodone-ACET 5/325MG TAB PO ONE (12:30)
[2021-12-09] MEDS ORDERED: InsuLIN REG 1unit/0.01ml Soln (100units/ml) SC SCH (12:36)
[2021-12-09 16:00] VITALS: BP 140/80
[2021-12-09] MEDS: Ensure HIGH Protein Chocolate 8oz Bottle PO SCH (18:00)
[2021-12-09 22:00] VITALS: BP 174/88
[2021-12-09] MEDS: traZODone HCL 50 MG TAB PO SCH (22:07)
[2021-12-09] MEDS: ATORVASTATIN 20 MG TAB PO SCH (22:07)
[2021-12-09] MEDS: traMADol HCL 50 MG TAB PO PRN (22:07)
[2021-12-09] MEDS: INSULIN LANTUS (GLARGINE) 1 /0.01ml (100units/ml) SC SCH (22:10)
[2021-12-10] MEDS: MIDODRINE HCL 10 MG TAB PO SCH ×3 (03:36→20:11)
[2021-12-10] MEDS: SODIUM CHLORIDE 0.9% 1,000 ML IV SCH (03:43)
[2021-12-10 05:05] VITALS: BP 125/77
[2021-12-10] MEDS: LEVOTHYROXINE SODIUM 50 MCG TAB PO SCH (06:34)
[2021-12-10] MEDS: InsuLIN REG 1unit/0.01ml Soln (100units/ml) SC SCH ×4 (06:35→22:53)
[2021-12-10] MEDS: ACCU-CHEK COMFORT CURVE STRIP VI SCH ×4 (06:35→22:52)
[2021-12-10 06:55] LABS: Potassium 3.5 mmol/L (3.5-5.1)
[2021-12-10 07:00] LABS: BUN/Creatinine Ratio 21.1; Calcium 9.2 mg/dL (8.5-10.1)
[2021-12-10 07:45] LABS: Basophils # (auto) 0.1 10 ^3/uL (0-0.2); Basophils % (auto) 1.2 % (0.0-2.0); Eosinophils # (auto) 0.2 10 ^3/uL (0-0.8); Eosinophils % (auto) 3.8 % (0.0-7.0); Hematocrit 33.5 % (36.0-46.0); Hemoglobin 12.1 g/dL (12.2-16.2); Lymphocytes # (auto) 1.8 10 ^3/uL (0.4-5.4); Lymphocytes % (auto) 37.5 % (10.0-50.0); Mean Corpuscular Hemoglobin 31.3 pg (28.0-32.0); Mean Corpuscular Hgb Conc. 36.2 g/dL (32.0-36.0); Mean Corpuscular Volume 86.4 fL (80.0-100.0); Monocytes # (auto) 0.5 10 ^3/uL (0-1.3); Monocytes % (auto) 10.4 % (0.0-12.0); Neutrophils # (auto) 2.3 10 ^3/uL (1.6-8.6); Neutrophils % (auto) 47.1 % (37.0-80.0); Nucleated Red Blood Cells % 0.1 %; Red Blood Cells 3.88 10^6/uL (4.0-5.20); Red Cell Distribution Width 14.1 % (11.8-14.3); White Blood Cell 4.8 10^3/uL (4.4-10.8)
[2021-12-10 08:00] VITALS: BP 98/54
[2021-12-10] MEDS: traMADol HCL 50 MG TAB PO PRN ×2 (09:28→22:51)
[2021-12-10] MEDS: GABAPENTIN 300 MG CAP PO SCH ×2 (09:28→22:51)
[2021-12-10] MEDS: FLUDROCORTISONE ACETATE 0.1 MG TAB PO SCH (09:28)
[2021-12-10 12:00] VITALS: BP 132/79
[2021-12-10 16:00] VITALS: BP 165/87
[2021-12-10] MEDS: Ensure HIGH Protein Chocolate 8oz Bottle PO SCH ×2 (20:11→20:12)
[2021-12-10 22:00] VITALS: BP 167/87
[2021-12-10] MEDS: traZODone HCL 50 MG TAB PO SCH (22:51)
[2021-12-10] MEDS: ATORVASTATIN 20 MG TAB PO SCH (22:51)
[2021-12-10] MEDS: INSULIN LANTUS (GLARGINE) 1 /0.01ml (100units/ml) SC SCH (22:52)
[2021-12-11] MEDS: SODIUM CHLORIDE 0.9% 1,000 ML IV SCH (01:55)
[2021-12-11] MEDS: MIDODRINE HCL 10 MG TAB PO SCH ×3 (03:30→19:30)
[2021-12-11 05:00] VITALS: BP_SYST 123; BP_SYST 135; BP_DIAS 58; BP_DIAS 78
[2021-12-11] MEDS: ACCU-CHEK COMFORT CURVE STRIP VI SCH ×4 (06:13→22:33)
[2021-12-11] MEDS: InsuLIN REG 1unit/0.01ml Soln (100units/ml) SC SCH ×4 (06:13→22:35)
[2021-12-11] MEDS: traMADol HCL 50 MG TAB PO PRN ×2 (06:14→22:33)
[2021-12-11] MEDS: LEVOTHYROXINE SODIUM 50 MCG TAB PO SCH (06:14)
[2021-12-11] MEDS: Ensure HIGH Protein Chocolate 8oz Bottle PO SCH ×3 (08:24→18:00)
[2021-12-11 09:00] VITALS: BP 127/75
[2021-12-11] MEDS: GABAPENTIN 300 MG CAP PO SCH ×2 (09:08→22:33)
[2021-12-11] MEDS: FLUDROCORTISONE ACETATE 0.1 MG TAB PO SCH (09:08)
[2021-12-11 13:00] VITALS: BP 116/59
[2021-12-11 17:00] VITALS: BP 97/50
[2021-12-11 21:31] VITALS: BP 120/70
[2021-12-11] MEDS: ATORVASTATIN 20 MG TAB PO SCH (22:33)
[2021-12-11] MEDS: traZODone HCL 50 MG TAB PO SCH (22:33)
[2021-12-11] MEDS: INSULIN LANTUS (GLARGINE) 1 /0.01ml (100units/ml) SC SCH (22:34)
[2021-12-12] MEDS: MIDODRINE HCL 10 MG TAB PO SCH ×2 (03:30→11:30)
[2021-12-12 04:31] VITALS: BP 129/79
[2021-12-12] MEDS: LEVOTHYROXINE SODIUM 50 MCG TAB PO SCH (06:19)
[2021-12-12] MEDS: traMADol HCL 50 MG TAB PO PRN (06:19)
[2021-12-12] MEDS: InsuLIN REG 1unit/0.01ml Soln (100units/ml) SC SCH ×2 (06:19→12:17)
[2021-12-12] MEDS: ACCU-CHEK COMFORT CURVE STRIP VI SCH ×2 (06:19→11:59)
[2021-12-12] MEDS: Ensure HIGH Protein Chocolate 8oz Bottle PO SCH ×2 (08:00→12:17)
[2021-12-12] MEDS: GABAPENTIN 300 MG CAP PO SCH (09:54)
[2021-12-12] MEDS: FLUDROCORTISONE ACETATE 0.1 MG TAB PO SCH (09:54)
[2021-12-12] MEDS ORDERED: GABA300C10 PO (12:19)
[2021-12-12] MEDS ORDERED: FLU01T PO (12:19)
[2021-12-12] MEDS ORDERED: MID10T PO (12:19)
[2021-12-12] MEDS ORDERED: LEV50T PO (12:19)
[2021-12-12] MEDS: ERGOCALCIFEROL 50,000 UNIT(1.25MG) CAP PO SCH (13:30)
== END 2021-12-12 16:15 | disposition home or self-care (01) | DRG 48 ==
LOC: ER 07:58 → EDBD 07:58 → TELE-WESTW 17:50 → WEST WING 12-08 16:45 → TELE-WESTW 12-09 07:53
PROVIDERS: ADMIT Family Medicine; ATTEND Internal Medicine
PROC: 0DJ08ZZ Inspection of Upper Intestinal Tract, Via Natural or Artificial Opening Endoscopic (ICD-10-PCS; principal; 2021-10-23 13:40)
DX: G90.8 Other disorders of autonomic nervous system (principal); E27.40 Unspecified adrenocortical insufficiency; E11.43 Type 2 diabetes mellitus with diabetic autonomic (poly)neuropathy; E11.42 Type 2 diabetes mellitus with diabetic polyneuropathy; I95.1 Orthostatic hypotension; K56.7 Ileus, unspecified; K29.70 Gastritis, unspecified, without bleeding; Z20.822 Contact with and (suspected) exposure to COVID-19; E11.65 Type 2 diabetes mellitus with hyperglycemia; S00.83XA Contusion of other part of head, initial encounter; S33.5XXA Sprain of ligaments of lumbar spine, initial encounter; E87.6 Hypokalemia; E66.3 Overweight; K31.84 Gastroparesis; E55.9 Vitamin D deficiency, unspecified; F45.8 Other somatoform disorders; R63.4 Abnormal weight loss; E03.9 Hypothyroidism, unspecified; F41.1 Generalized anxiety disorder; W18.39XA Other fall on same level, initial encounter; G89.29 Other chronic pain; I10 Essential (primary) hypertension; E78.5 Hyperlipidemia, unspecified; Z79.4 Long term (current) use of insulin; Z80.0 Family history of malignant neoplasm of digestive organs; Z82.3 Family history of stroke; Z82.49 Family history of ischemic heart disease and other diseases of the circulatory system; Z82.5 Family history of asthma and other chronic lower respiratory diseases; Z83.3 Family history of diabetes mellitus; Z85.828 Personal history of other malignant neoplasm of skin; Y93.89 Activity, other specified; Y92.89 Other specified places as the place of occurrence of the external cause; Y99.8 Other external cause status; Z88.0 Allergy status to penicillin; Z88.8 Allergy status to other drugs, medicaments and biological substances; Z91.040 Latex allergy status; Z68.23 Body mass index [BMI] 23.0-23.9, adult
CPT/HCPCS: 36415; 43235; 70450; 70496; 70498; 70553; 71260; 72100; 72125; 72131; 72148; 74177; 80048; 80053; 81001; 82105; 82150; 82306; 82378; 82533; 82962; 83036; 83540; 83550; 83690; 83735; 84132; 84443; 84484; 85025; 85610; 85730; 86301; 86304; 87081; 93005; 96374; 96375; 96376; 97110; 97116; 97163; 97530; G0378; J1815; J1885; J2250; J2405; J3490

== ENCOUNTER 2022-01-02 17:54 | Emergency (ER) | payer MEDICAID ==
[~2022-01-02] VITALS: Ht 177.8 cm; Wt 59.0 kg
[~2022-01-02 17:54] MED LIST changes: +FLU01T PO; +GABA300C10 PO; +LEV50T PO; +MID10T PO
[2022-01-02 18:42] VITALS: BP 120/75
[2022-01-02 19:46] LABS: Basophils # (auto) 0 10 ^3/uL (0-0.2); Basophils % (auto) 0.9 % (0.0-2.0); Eosinophils # (auto) 0.2 10 ^3/uL (0-0.8); Eosinophils % (auto) 3.7 % (0.0-7.0); Hematocrit 37.2 % (36.0-46.0); Hemoglobin 12.3 g/dL (12.2-16.2); Lymphocytes # (auto) 2.1 10 ^3/uL (0.4-5.4); Lymphocytes % (auto) 39.9 % (10.0-50.0); Mean Corpuscular Hemoglobin 29.7 pg (28.0-32.0); Mean Corpuscular Hgb Conc. 33.1 g/dL (32.0-36.0); Mean Corpuscular Volume 89.7 fL (80.0-100.0); Monocytes # (auto) 0.4 10 ^3/uL (0-1.3); Neutrophils # (auto) 2.5 10 ^3/uL (1.6-8.6); Neutrophils % (auto) 48.5 % (37.0-80.0); Nucleated Red Blood Cells % 0.1 %; Red Blood Cells 4.15 10^6/uL (4.0-5.20); Red Cell Distribution Width 13.6 % (11.8-14.3); White Blood Cell 5.1 10^3/uL (4.4-10.8)
[2022-01-02 19:59] LABS: Albumin 3.7 g/dL (3.4-5.0); Calcium 9.3 mg/dL (8.5-10.1); Magnesium 1.8 mg/dL (1.6-2.6); Potassium 4.1 mmol/L (3.5-5.1)
[2022-01-02 20:01] LABS: BUN/Creatinine Ratio 12.2
[2022-01-02 20:03] LABS: Bilirubin, Total 1.7 mg/dL (0.2-1.0); Total Protein 7.1 g/dL (6.4-8.2)
[2022-01-02] MEDS ORDERED: SODIUM CHLORIDE 0.9% 1,000 ML IVB ONE (21:00)
[2022-01-02] MEDS ORDERED: DONNATAL 5ml ORAL Elix (BELLADONNA ALK-PHENOBARB) PO ONE (21:00)
[2022-01-02] MEDS ORDERED: ALUM & MAG HYDROX-SIMETH LIQ(MAALOX) 30 ML PO ONE (21:00)
[2022-01-02] MEDS ORDERED: IOHEXOL 300 MG/ML 100ML BOTTLE IJ ONE (21:43)
[2022-01-02] MEDS ORDERED: METOCLOPRAMIDE HCL 10 MG TAB PO ONE (21:45)
[2022-01-02] MEDS ORDERED: HALOPERIDOL LACTATE 5 MG/ML INJ VIAL IM ONE (21:45)
[2022-01-02] MEDS ORDERED: METO5TAB67 PO (23:29)
[2022-01-02] MEDS ORDERED: ONDA-144 PO (23:29)
== END 2022-01-03 01:44 | disposition home or self-care (01) ==
LOC: ER 17:54
DX: R10.84 Generalized abdominal pain (principal); R11.2 Nausea with vomiting, unspecified; E11.9 Type 2 diabetes mellitus without complications; Z88.0 Allergy status to penicillin; Z88.1 Allergy status to other antibiotic agents; Z91.040 Latex allergy status
CPT/HCPCS: 36415; 74177; 76705; 80053; 83690; 83735; 84484; 85025; 93005; 99285; Q9967; 81001

== ENCOUNTER 2022-01-14 18:40 | Emergency (ER) | payer MEDICAID ==
[~2022-01-14 18:40] MED LIST changes: +METO5TAB67 PO; +ONDA-144 PO
[2022-01-14] MEDS ORDERED: SODIUM CHLORIDE 0.9% 1,000 ML IV ONE (19:00)
[2022-01-14 19:44] LABS: Basophils # (auto) 0 10 ^3/uL (0-0.2); Basophils % (auto) 0.9 % (0.0-2.0); Eosinophils # (auto) 0.1 10 ^3/uL (0-0.8); Eosinophils % (auto) 1.6 % (0.0-7.0); Hematocrit 37.7 % (36.0-46.0); Hemoglobin 12.7 g/dL (12.2-16.2); Lymphocytes % (auto) 42.9 % (10.0-50.0); Mean Corpuscular Hemoglobin 30.1 pg (28.0-32.0); Mean Corpuscular Hgb Conc. 33.7 g/dL (32.0-36.0); Mean Corpuscular Volume 89.3 fL (80.0-100.0); Monocytes # (auto) 0.4 10 ^3/uL (0-1.3); Neutrophils # (auto) 2.1 10 ^3/uL (1.6-8.6); Neutrophils % (auto) 45.6 % (37.0-80.0); Nucleated Red Blood Cells % 0.1 %; Red Blood Cells 4.22 10^6/uL (4.0-5.20); Red Cell Distribution Width 13.3 % (11.8-14.3); White Blood Cell 4.6 10^3/uL (4.4-10.8)
[2022-01-14 19:54] LABS: INR 0.96 (0.9-1.15); Partial Thromboplastin Time 23.5 sec (24.6-33.4)
[2022-01-14 19:57] LABS: Albumin 3.6 g/dL (3.4-5.0); Calcium 9.6 mg/dL (8.5-10.1); Potassium 4.1 mmol/L (3.5-5.1)
[2022-01-14 20:02] LABS: BUN/Creatinine Ratio 17.4
[2022-01-14] MEDS ORDERED: IOHEXOL 300 MG/ML 100ML BOTTLE IJ ONE (20:15)
[2022-01-14] MEDS ORDERED: MORPHINE SULFATE 4 MG/ML SYR/VIAL ONE (21:11)
[2022-01-14] MEDS ORDERED: ONDANSETRON HCL 4 MG/2 ML VIAL ONE (21:12)
[2022-01-14] MEDS ORDERED: MORPHINE SULFATE 4 MG/ML SYR/VIAL IV ONE (21:15)
[2022-01-14] MEDS ORDERED: ONDANSETRON HCL 4 MG/2 ML VIAL IV ONE (21:15)
[2022-01-15] MEDS ORDERED: MORPHINE SULFATE 4 MG/ML SYR/VIAL IV ONE ×2 (01:30→06:15)
[2022-01-15] MEDS ORDERED: ONDANSETRON HCL 4 MG/2 ML VIAL IV ONE (01:30)
[2022-01-15 06:18] VITALS: BP 125/76
== END 2022-01-15 07:46 | disposition left against medical advice (07) ==
LOC: ER 18:40 → EDBD 18:40 → ER 01-15 07:46
DX: R42 Dizziness and giddiness (principal); I95.9 Hypotension, unspecified; R55 Syncope and collapse; R10.84 Generalized abdominal pain; E27.1 Primary adrenocortical insufficiency; I10 Essential (primary) hypertension; E11.9 Type 2 diabetes mellitus without complications; E03.9 Hypothyroidism, unspecified; Z79.4 Long term (current) use of insulin; Z79.899 Other long term (current) drug therapy; Z88.0 Allergy status to penicillin; Z88.1 Allergy status to other antibiotic agents; Z88.8 Allergy status to other drugs, medicaments and biological substances; Z91.040 Latex allergy status
CPT/HCPCS: 36415; 71045; 74177; 80053; 83880; 84443; 84484; 85025; 85610; 85730; 93005; 96361; 96374; 96375; 96376; 99285; J2270; J2405; J7030; Q9967

== ENCOUNTER 2022-07-09 19:19 | Inpatient (IN) | payer MEDICAID ==
[~2022-07-09] VITALS: Ht 177.8 cm; Wt 84.1 kg
[2022-07-09] MEDS ORDERED: SODIUM CHLORIDE 0.9% 1,000 ML IV ONE (19:45)
[2022-07-09] MEDS ORDERED: InsuLIN REG 1unit/0.01ml Soln (100units/ml) IV ONE (19:45)
[2022-07-09 20:19] LABS: Basophils # (auto) 0.1 10 ^3/uL (0-0.2); Basophils % (auto) 1.1 % (0.0-2.0); Eosinophils # (auto) 0.2 10 ^3/uL (0-0.8); Eosinophils % (auto) 2.5 % (0.0-7.0); Hematocrit 37.5 % (36.0-46.0); Hemoglobin 12.7 g/dL (12.2-16.2); Lymphocytes # (auto) 1.5 10 ^3/uL (0.4-5.4); Lymphocytes % (auto) 22.8 % (10.0-50.0); Mean Corpuscular Hemoglobin 31.2 pg (28.0-32.0); Mean Corpuscular Hgb Conc. 33.8 g/dL (32.0-36.0); Mean Corpuscular Volume 92.2 fL (80.0-100.0); Monocytes # (auto) 0.4 10 ^3/uL (0-1.3); Monocytes % (auto) 6.8 % (0.0-12.0); Neutrophils # (auto) 4.4 10 ^3/uL (1.6-8.6); Neutrophils % (auto) 66.8 % (37.0-80.0); Nucleated Red Blood Cells % 0.1 %; Red Blood Cells 4.07 10^6/uL (4.0-5.20); Red Cell Distribution Width 12.4 % (11.8-14.3); White Blood Cell 6.6 10^3/uL (4.4-10.8)
[2022-07-09 20:35] LABS: Calcium 9.2 mg/dL (8.5-10.1); Potassium 4.6 mmol/L (3.5-5.1)
[2022-07-09 20:43] LABS: BUN/Creatinine Ratio 15.3
[2022-07-09] MEDS ORDERED: HYDROcodone-ACET 5/325MG TAB PO ONE (21:00)
[2022-07-09] MEDS ORDERED: ACETAMINOPHEN 325 MG TAB PO PRN (23:45)
[2022-07-09] MEDS ORDERED: VANCOMYCIN 1GM/250ML 250 ML IV ONE (23:45)
[2022-07-09] MEDS ORDERED: HYDROcodone-ACET 5/325MG TAB PO PRN (23:45)
[2022-07-09] MEDS ORDERED: MAALOX PLUS or MAALOX 30 ML PO PRN (23:45)
[2022-07-09] MEDS ORDERED: DOCUSATE SOD 100 MG CAP PO PRN (23:45)
[2022-07-09] MEDS ORDERED: TEMAZEPAM 15 MG CAP PO PRN (23:45)
[2022-07-09] MEDS ORDERED: DEXTROSE (50%) 50ML SYRG IV PRN (23:45)
[2022-07-09] MEDS ORDERED: LORazepam 0.5 MG TAB PO PRN (23:45)
[2022-07-10] MEDS ORDERED: VANCOMYCIN 1GM/250ML 250 ML IV ONE
[2022-07-10] MEDS: SODIUM CHLORIDE 0.9% 1,000 ML IV SCH ×2 (01:17→10:10)
[2022-07-10] MEDS: INSULIN LANTUS (GLARGINE) 1 /0.01ml (100units/ml) SC SCH ×2 (01:22→22:34)
[2022-07-10] MEDS: ONDANSETRON HCL 4 MG/2 ML VIAL IV PRN ×3 (01:23→11:44)
[2022-07-10] MEDS: MORPHINE SULFATE INJ 2 MG/ml SYRG IV PRN ×4 (01:24→19:05)
[2022-07-10 06:31] LABS: Basophils # (auto) 0.1 10 ^3/uL (0-0.2); Basophils % (auto) 0.8 % (0.0-2.0); Eosinophils # (auto) 0.2 10 ^3/uL (0-0.8); Eosinophils % (auto) 3.1 % (0.0-7.0); Hemoglobin 11.5 g/dL (12.2-16.2); Lymphocytes # (auto) 1.6 10 ^3/uL (0.4-5.4); Lymphocytes % (auto) 22.6 % (10.0-50.0); Mean Corpuscular Hemoglobin 31.3 pg (28.0-32.0); Mean Corpuscular Volume 89.7 fL (80.0-100.0); Monocytes # (auto) 0.5 10 ^3/uL (0-1.3); Monocytes % (auto) 7.4 % (0.0-12.0); Neutrophils # (auto) 4.8 10 ^3/uL (1.6-8.6); Neutrophils % (auto) 66.1 % (37.0-80.0); Red Blood Cells 3.68 10^6/uL (4.0-5.20); Red Cell Distribution Width 12.2 % (11.8-14.3); White Blood Cell 7.2 10^3/uL (4.4-10.8)
[2022-07-10 06:44] LABS: BUN/Creatinine Ratio 17.3; Calcium 8.8 mg/dL (8.5-10.1); Potassium 4.5 mmol/L (3.5-5.1)
[2022-07-10] MEDS: ACCU-CHEK COMFORT CURVE STRIP VI SCH ×4 (06:56→22:35)
[2022-07-10] MEDS: InsuLIN REG 1unit/0.01ml Soln (100units/ml) SC SCH ×4 (07:03→22:34)
[2022-07-10 08:21] LABS: Urine Bacteria NONE SEEN /hpf (None Seen); Urine Blood Negative /uL (Negative); Urine Specific Gravity 1.019 (1.001-1.035); Urine WBC 5 /hpf (0 - 5)
[2022-07-10] MEDS ORDERED: DEXTROSE (50%) 50ML SYRG IV PRN (13:00)
[2022-07-10 19:05] VITALS: BP 117/54
[2022-07-10 19:15] VITALS: BP 117/54
[2022-07-10 22:00] VITALS: BP 115/51
[2022-07-10] MEDS ORDERED: InsuLIN REG 1unit/0.01ml Soln (100units/ml) SC SCH (22:00)
[2022-07-10] MEDS: GABAPENTIN 300 MG CAP PO SCH (22:32)
[2022-07-11] VITALS (8 sets, daily range): BP systolic 114–130; BP diastolic 70–80
[2022-07-11] MEDS: MORPHINE SULFATE INJ 2 MG/ml SYRG IV PRN ×5 (03:50→23:21)
[2022-07-11] MEDS: InsuLIN REG 1unit/0.01ml Soln (100units/ml) SC SCH ×4 (06:26→22:03)
[2022-07-11] MEDS: ACCU-CHEK COMFORT CURVE STRIP VI SCH ×4 (06:27→21:55)
[2022-07-11] MEDS: GABAPENTIN 300 MG CAP PO SCH ×2 (09:29→21:54)
[2022-07-11] MEDS: ONDANSETRON HCL 4 MG/2 ML VIAL IV PRN ×2 (14:49→23:11)
[2022-07-11] MEDS ORDERED: HYDR-4902 PO (15:50)
[2022-07-11] MEDS ORDERED: ONDA-144 PO (15:50)
[2022-07-11] MEDS ORDERED: DOCU-94 PO (15:50)
[2022-07-11] MEDS: INSULIN LANTUS (GLARGINE) 1 /0.01ml (100units/ml) SC SCH (22:03)
[2022-07-12] MEDS: ONDANSETRON HCL 4 MG/2 ML VIAL IV PRN ×2 (04:33→08:16)
[2022-07-12] MEDS: MORPHINE SULFATE INJ 2 MG/ml SYRG IV PRN ×2 (04:34→08:17)
[2022-07-12 05:00] VITALS: BP 119/76
[2022-07-12] MEDS: ACCU-CHEK COMFORT CURVE STRIP VI SCH ×2 (06:55→12:39)
[2022-07-12] MEDS: InsuLIN REG 1unit/0.01ml Soln (100units/ml) SC SCH ×2 (06:55→11:30)
[2022-07-12 08:25] VITALS: BP 110/69
[2022-07-12] MEDS: GABAPENTIN 300 MG CAP PO SCH (10:16)
[2022-07-12 12:25] VITALS: BP 118/65
[2022-07-12 14:14] VITALS: BP 118/65
== END 2022-07-12 15:20 | disposition home or self-care (01) | DRG 342 ==
LOC: EDBD 19:19 → ER 19:21 → OVERFLOW 23:52 → EAST 07-10 17:56
PROVIDERS: ADMIT Hospitalist; ATTEND Nurse Practitioner Acute Care
DX: S92.315A Nondisplaced fracture of first metatarsal bone, left foot, initial encounter for closed fracture (principal); N17.0 Acute kidney failure with tubular necrosis; S92.312A Displaced fracture of first metatarsal bone, left foot, initial encounter for closed fracture; E11.40 Type 2 diabetes mellitus with diabetic neuropathy, unspecified; E11.65 Type 2 diabetes mellitus with hyperglycemia; Z20.822 Contact with and (suspected) exposure to COVID-19; S92.345A Nondisplaced fracture of fourth metatarsal bone, left foot, initial encounter for closed fracture; S92.332A Displaced fracture of third metatarsal bone, left foot, initial encounter for closed fracture; S00.81XA Abrasion of other part of head, initial encounter; S92.322A Displaced fracture of second metatarsal bone, left foot, initial encounter for closed fracture; W18.39XA Other fall on same level, initial encounter; E66.9 Obesity, unspecified; Z91.14 Patient's other noncompliance with medication regimen; I10 Essential (primary) hypertension; Z82.3 Family history of stroke; Z82.49 Family history of ischemic heart disease and other diseases of the circulatory system; Z82.5 Family history of asthma and other chronic lower respiratory diseases; Z88.0 Allergy status to penicillin; Z88.6 Allergy status to analgesic agent; Z91.040 Latex allergy status; Y93.89 Activity, other specified; Y92.89 Other specified places as the place of occurrence of the external cause; Y99.8 Other external cause status; Z88.1 Allergy status to other antibiotic agents; Z88.8 Allergy status to other drugs, medicaments and biological substances; Z68.26 Body mass index [BMI] 26.0-26.9, adult
CPT/HCPCS: 36415; 70450; 70486; 71250; 72125; 73630; 74176; 80048; 81001; 82962; 83036; 85025; 87426; 96361; 96374; G0378; J1815; J2405

== ENCOUNTER 2023-04-17 17:52 | Inpatient (IN) | payer MEDICAID ==
[~2023-04-17] VITALS: Ht 177.8 cm; Wt 97.3 kg
[~2023-04-17 17:52] MED LIST changes: +DOCU-94 PO; +GABA-1250 PO; -GABA300C10 PO; +HYDR-4902 PO
[2023-04-17 18:53] LABS: Basophils # (auto) 0.1 10 ^3/uL (0-0.2); Eosinophils # (auto) 0.3 10 ^3/uL (0-0.8); Eosinophils % (auto) 3.2 % (0.0-7.0); Hematocrit 42.4 % (36.0-46.0); Hemoglobin 13.8 g/dL (12.2-16.2); Lymphocytes # (auto) 2.2 10 ^3/uL (0.4-5.4); Lymphocytes % (auto) 26.3 % (10.0-50.0); Mean Corpuscular Hemoglobin 30.2 pg (28.0-32.0); Mean Corpuscular Hgb Conc. 32.6 g/dL (32.0-36.0); Mean Corpuscular Volume 92.5 fL (80.0-100.0); Monocytes # (auto) 0.6 10 ^3/uL (0-1.3); Monocytes % (auto) 6.7 % (0.0-12.0); Neutrophils # (auto) 5.3 10 ^3/uL (1.6-8.6); Neutrophils % (auto) 62.8 % (37.0-80.0); Nucleated Red Blood Cells % 0.1 %; Red Blood Cells 4.58 10^6/uL (4.0-5.20); Red Cell Distribution Width 13.1 % (11.8-14.3); White Blood Cell 8.5 10^3/uL (4.4-10.8)
[2023-04-17] MEDS ORDERED: SODIUM CHLORIDE 0.9% 1,000 ML IV ONE (19:00)
[2023-04-17 19:07] LABS: Lactic Acid w/Reflex 6.2 mmol/L (0.4-2.0)
[2023-04-17 19:08] LABS: Alanine Aminotransferase 22 U/L (7-40); Albumin 4.4 g/dL (3.2-4.8); Alkaline Phosphatase 106 U/L (46-116); Anion Gap 13 (5-15); Aspartate Aminotransferase 14 U/L (13-40); BUN/Creatinine Ratio 8.8 (10.0-20.0); Bilirubin, Total 1.6 mg/dL (0.2-1.0); Blood Urea Nitrogen 14 mg/dL (9-23); Calcium 9.6 mg/dL (8.5-10.1); Carbon Dioxide 23 mmol/L (20-30); Chloride 89 mmol/L (98-107); Phosphorus 3.1 mg/dL (2.4-5.1); Potassium 3.9 mmol/L (3.5-5.1); Sodium 125 mmol/L (136-145); Total Protein 7.3 g/dL (5.7-8.2)
[2023-04-17 19:20] LABS: Glucose 764 mg/dL (74-106)
[2023-04-17 19:22] LABS: Magnesium 1.7 mg/dL (1.6-2.6)
[2023-04-17 19:30] VITALS: PULSE 91; RESP 13; O2SAT 96
[2023-04-17] MEDS ORDERED: InsuLIN REG 1unit/0.01ml Soln (100units/ml) IV ONE (19:30)
[2023-04-17 19:33] LABS: Base Excess -3.6 mmol/L (-2.0-2.0)
[2023-04-17 19:38] LABS: Urine Bacteria NONE SEEN /hpf (None Seen); Urine Blood Negative /uL (Negative); Urine Clarity Clear (Clear); Urine Color Colorless (Yellow); Urine Protein, UAD Negative (Negative); Urine Specific Gravity 1.029 (1.001-1.035); Urine Urobilinogen Normal (Negative); Urine WBC 1 /hpf (0 - 5)
[2023-04-18] MEDS ORDERED: TEMAZEPAM 15 MG CAP PO PRN (01:15)
[2023-04-18] MEDS ORDERED: SODIUM CHLORIDE 0.9% 500 ML IV ONE (01:15)
[2023-04-18] MEDS ORDERED: ACETAMINOPHEN 325 MG TAB PO PRN (01:15)
[2023-04-18] MEDS ORDERED: DEXTROSE (50%) 50ML SYRG IV PRN (01:15)
[2023-04-18] MEDS ORDERED: ONDANSETRON HCL 4 MG/2 ML VIAL IV PRN (01:15)
[2023-04-18] MEDS ORDERED: GABAPENTIN 300 MG CAP PO ONE (01:45)
[2023-04-18 01:55] LABS: Alanine Aminotransferase 11 U/L (7-40); Albumin 3.7 g/dL (3.2-4.8); Alkaline Phosphatase 87 U/L (46-116); Anion Gap 6 (5-15); Aspartate Aminotransferase 12 U/L (13-40); BUN/Creatinine Ratio 6.1 (10.0-20.0); Bilirubin, Total 1.1 mg/dL (0.2-1.0); Blood Urea Nitrogen 7 mg/dL (9-23); Calcium 8.9 mg/dL (8.7-10.4); Carbon Dioxide 25 mmol/L (20-30); Chloride 102 mmol/L (98-107); Potassium 3.5 mmol/L (3.5-5.1); Total Protein 6.4 g/dL (5.7-8.2)
[2023-04-18 02:00] LABS: Sodium 133 mmol/L (136-145)
[2023-04-18 02:05] LABS: Hematocrit 36.1 % (36.0-46.0); Hemoglobin 12.3 g/dL (12.2-16.2); Mean Corpuscular Hemoglobin 30.3 pg (28.0-32.0); Mean Corpuscular Hgb Conc. 34.1 g/dL (32.0-36.0); Mean Corpuscular Volume 88.7 fL (80.0-100.0); Red Blood Cells 4.07 10^6/uL (4.0-5.20); Red Cell Distribution Width 12.8 % (11.8-14.3); White Blood Cell 6.9 10^3/uL (4.4-10.8)
[2023-04-18 02:09] LABS: Band Neutrophils % (manual) 0; Basophils % (manual) 0 (0.0-2.0); Blast Cells 0; Metamyelocytes % 0; Promyelocytes % 0; Reactive Lymphocytes 0
[2023-04-18 02:10] LABS: Glucose 390 mg/dL (74-106); Triglycerides 388 mg/dL (< 150)
[2023-04-18 02:11] LABS: LDL Cholesterol 127 mg/dL (< 100)
[2023-04-18 02:12] LABS: Cholesterol 224 mg/dL (< 200); HDL Cholesterol 40 mg/dL (40-59)
[2023-04-18 03:25] LABS: Eosinophils % (manual) 4 (0-7); Lymphocytes % (manual) 36 (10.0-50.0); Monocytes % (manual) 8 (0-12); Myelocytes % 1; Platelet Estimate Adequate; RBC Morphology Normal
[2023-04-18] MEDS: ACCU-CHEK COMFORT CURVE STRIP VI SCH ×5 (04:42→20:00)
[2023-04-18] MEDS: InsuLIN REG 1unit/0.01ml Soln (100units/ml) SC SCH ×5 (04:57→21:08)
[2023-04-18] MEDS: LEVOTHYROXINE SODIUM 50 MCG TAB PO SCH (06:52)
[2023-04-18 08:00] VITALS: PULSE 82; RESP 14; O2SAT 96
[2023-04-18] MEDS: GABAPENTIN 300 MG CAP PO SCH ×2 (09:44→22:58)
[2023-04-18 20:41] VITALS: PULSE 78; RESP 20; O2SAT 96
[2023-04-18] MEDS: HYDROcodone-ACET 5/325MG TAB PO PRN (22:56)
[2023-04-19] MEDS: InsuLIN REG 1unit/0.01ml Soln (100units/ml) SC SCH ×7 (00:59→23:55)
[2023-04-19] MEDS: ACCU-CHEK COMFORT CURVE STRIP VI SCH ×7 (00:59→23:52)
[2023-04-19] MEDS: LEVOTHYROXINE SODIUM 50 MCG TAB PO SCH (08:26)
[2023-04-19] MEDS: HYDROcodone-ACET 5/325MG TAB PO PRN ×2 (08:36→15:43)
[2023-04-19 09:24] VITALS: PULSE 86; RESP 15; O2SAT 97
[2023-04-19] MEDS: GABAPENTIN 300 MG CAP PO SCH ×2 (10:13→21:39)
[2023-04-19 12:00] VITALS: BP_SYST 106; BP_SYST 117; BP_DIAS 61; BP_DIAS 69; PULSE 71; RESP 20; TEMP 98.2; O2SAT 94; O2SAT 97
[2023-04-19 16:00] VITALS: BP 127/76; PULSE 76; RESP 20; TEMP 98; O2SAT 95
[2023-04-19 18:56] VITALS: RESP 16
[2023-04-19 20:00] VITALS: O2SAT 97
[2023-04-19 22:00] VITALS: BP 115/71; PULSE 84; RESP 16; TEMP 97.9; O2SAT 97
[2023-04-20] MEDS: HYDROcodone-ACET 5/325MG TAB PO PRN (03:04)
[2023-04-20] MEDS: ACCU-CHEK COMFORT CURVE STRIP VI SCH ×2 (03:49→08:11)
[2023-04-20] MEDS: InsuLIN REG 1unit/0.01ml Soln (100units/ml) SC SCH ×2 (03:52→08:13)
[2023-04-20 05:00] VITALS: BP 109/58; PULSE 75; RESP 17; TEMP 97.6; O2SAT 100
[2023-04-20] MEDS: LEVOTHYROXINE SODIUM 50 MCG TAB PO SCH (06:31)
[2023-04-20 08:00] VITALS: BP 133/81; PULSE 73; RESP 20; TEMP 97.9; O2SAT 95
[2023-04-20 09:00] VITALS: BP 133/81; PULSE 73; RESP 20; TEMP 97.9; O2SAT 95
[2023-04-20] MEDS ORDERED: ATO40T PO (09:47)
[2023-04-20] MEDS: GABAPENTIN 300 MG CAP PO SCH (09:50)
[2023-04-20 10:33] VITALS: BP 133/81; PULSE 73; RESP 20; TEMP 97.9; O2SAT 95
== END 2023-04-20 11:45 | disposition home or self-care (01) | DRG 420 ==
LOC: ER 17:52 → OVERFLOW 04-18 01:13 → CENTRAL 04-19 11:10
PROVIDERS: ADMIT Nurse Practitioner; ATTEND Family Medicine
DX: E11.00 Type 2 diabetes mellitus with hyperosmolarity without nonketotic hyperglycemic-hyperosmolar coma (NKHHC) (principal); N17.0 Acute kidney failure with tubular necrosis; E11.22 Type 2 diabetes mellitus with diabetic chronic kidney disease; E11.42 Type 2 diabetes mellitus with diabetic polyneuropathy; E87.1 Hypo-osmolality and hyponatremia; E11.65 Type 2 diabetes mellitus with hyperglycemia; E86.0 Dehydration; E03.9 Hypothyroidism, unspecified; E78.00 Pure hypercholesterolemia, unspecified; E78.1 Pure hyperglyceridemia; I12.9 Hypertensive chronic kidney disease with stage 1 through stage 4 chronic kidney disease, or unspecified chronic kidney disease; N18.9 Chronic kidney disease, unspecified; Z79.4 Long term (current) use of insulin; T38.3X6A Underdosing of insulin and oral hypoglycemic [antidiabetic] drugs, initial encounter; Z79.84 Long term (current) use of oral hypoglycemic drugs; Z80.9 Family history of malignant neoplasm, unspecified; Z82.5 Family history of asthma and other chronic lower respiratory diseases; Z88.0 Allergy status to penicillin; Z88.6 Allergy status to analgesic agent; Z91.148 Patient's other noncompliance with medication regimen for other reason; Z91.199 Patient's noncompliance with other medical treatment and regimen due to unspecified reason
CPT/HCPCS: 36415; 36600; 71045; 80053; 80061; 81001; 82010; 82805; 82962; 83605; 83735; 83880; 84100; 84484; 85007; 85025; 85027; 93005; G0378; J1815